=== PATIENT | female | born 1940 | race Caucasian/White ===

== ENCOUNTER → 2016-08-21 | Outpatient (CLI) | payer OTHER, MEDICARE ==
[~2016-08-21] MED LIST: ACET-1256 PO; AGG PO; AMB5 PO; ASCO1CAP3 PO; CALC1CHW32 PO; CALCTAB5 PO; CHOL100010 PO; CLX20 PO; CLX40 PO; CYAN10005 PO; GFNSR600 PO; IBUP-1050 PO; IPRA1AER2 INH; LVQ750 PO; MAGN250T22 PO; METF850T PO; MULT-506 PO; OMEP20CA9 PO; OXYC-57 PO; PRED10TA PO; TRIA1SPR2 NAE; TRIA1SPR4 NAE; ZYR10 PO
== END | disposition home or self-care (01) ==
LOC: C.RDSM 16:27
PROVIDERS: ATTEND Physical Medicine & Rehabilitation Sports Medicine
DX: M75.121 Complete rotator cuff tear or rupture of right shoulder, not specified as traumatic (principal)

== ENCOUNTER 2016-12-10 17:58 | Inpatient (IN) | payer OTHER, MEDICARE ==
[~2016-12-10] VITALS: Ht 167.6 cm; Wt 90.0 kg
[~2016-12-10 17:58] MED LIST changes: -AMB5 PO; -CALC1CHW32 PO; -CLX40 PO; -GFNSR600 PO; -IPRA1AER2 INH; -LVQ750 PO; -PRED10TA PO; -TRIA1SPR4 NAE; -ZYR10 PO
--- NOTE | 2016-12-10 18:26 | EMERGENCY ROOM VISIT NOTE ---
History Report prepared by Huber: Michael Whalen Under the Supervision of: Dr. Cuate Guzman M.D. First contact with patient: 18:15 Chief Complaint: COUGH Stated Complaint: FLU LIKE SX Nursing Triage Summary: pt to the ED with c/o exhaustion and coughing up "all colors" seen at [facility] 2 x this week and is worried about pneumonia History of Present Illness The patient is a 76 year old female who presents to the Emergency Room with complaints of a persistent illness beginning about 6 days ago. She notes having a productive cough that occasionally prevents her from carrying a conversation. She lives alone and has concern for pneumonia. The patient admits to having intermittent fevers about 2.5 degrees above her baseline but none above 101. She denies abdominal pain but is just sore from coughing. She was at the walk- in clinic at [place] 3 days ago and received a breathing treatment, and went back yesterday receiving Ceftin. No x-rays were taken during these visits. The patient has also been taking Mucinex D with no relief of her symptoms. She admits to being on Metformin for low level diabetes. Source of History: patient Onset: about 6 days ago Position: other (global) Quality: other (illness) Timing: other (persistent) Associated Symptoms: + cough, + fevers, No abdominal pain Review of Systems See HPI for pertinent positives & negatives. A total of 10 systems reviewed and were otherwise negative. Past Medical & Surgical Medical Problems: (1) Anxiety (2) Community acquired pneumonia (3) Diabetes (4) GERD (gastroesophageal reflux disease) (5) Osteoporosis (6) Rotator cuff insufficiency of right shoulder Family History FHx: diabetes Social History Smoking Status: Former Smoker Alcohol Use: occasionally Drug Use: none Marital Status: Housing Status: lives alone Occupation Status: employed Current/Historical Medications Scheduled Ascorbic Acid (Vitamin C), 500 MG PO BID Calcium Phosphate-Cholecalcife (Caltrate Gummy Bites), 1 TAB PO DAILY Cholecalciferol (Vitamin D), 1,000 UNITS PO QAM Citalopram (Citalopram Hydrobromide), 40 MG PO QAM Cyanocobalamin (Vitamin B-12), Unknown Dose PO EVERY 3RD DAY Dipyridamole/Aspirin (Aggrenox 25-200 mg), 1 CAP PO BID Magnesium Oxide (Magnesium), 250 MG PO BID Metformin Hcl (Glucophage), 850 MG PO BIDM Multivitamin (Multivitamin), 1 TAB PO QAM Omeprazole (Prilosec), 20 MG PO HS Triamcinolone Acetonide (Nasal (Nasacort Allergy 24Hr), 1 SPRAY KADY QAM Scheduled PRN Acetaminophen (Tylenol), 500 MG PO Q6H PRN for Fever Allergies Coded Allergies: Latex1 -Allergic Contact Dermititis (Verified Allergy, Unknown, contact dermatitis, 12/10/16) pt states unable to determine if rxn was to the latex or silicone component of eyeglass nosepiece Silicone (Verified Allergy, Unknown, contact dermatitis, 12/10/16) pt states unable to determine if rxn was to the latex or silicone component of eyeglass nosepiece Physical Exam Vital Signs Date Time Temp Pulse Resp B/P Pulse Ox O2 Delivery O2 Flow Rate FiO2 12/10/16 20:57 37.6 96 18 120/72 91 Room Air 12/10/16 18:11 37.7 117 20 128/68 90 Room Air Physical Exam GENERAL: Patient is ill appearing and in moderate distress. HEENT: No acute trauma, normocephalic atraumatic, mucous membranes moist, no nasal congestion, no scleral icterus. NECK: No stridor, no adenopathy, no meningismus, trachea is midline. LUNGS: Crackles throughout right lower lobe. Decreased breath sounds in the right lower lobe. Productive cough noted. HEART:Tachycardic rate and regular rhythm. No murmurs, rubs, gallops appreciated. ABDOMEN: Soft, nontender, bowel sounds positive, no masses appreciated, no peritonitis. BACK: No midline tenderness, no CVA tenderness EXTREMITIES: Normal motion all extremities, no cyanosis, no edema. NEUROLOGIC: Alert and oriented, no acute motor or sensory deficits, no focal weakness, cranial nerves grossly intact. SKIN: No rash, no jaundice, no diaphoresis. Medical Decision & Procedures ER Provider Diagnostic Interpretation: Radiology results and stated below per my review and radiologist interpretation: CHEST ONE VIEW PORTABLE FINDINGS: There is a new right lower lobe patchy airspace opacity. The left lung is clear. The heart is normal in size. Retrocardiac density remains unchanged and likely represents a moderate hiatus hernia. No pleural effusions. No pneumothorax. IMPRESSION: A new right lower lobe airspace opacity consistent with a pneumonia. Recommend follow-up to ensure resolution. Electronically signed by: Mu Carbajal M.D. 12/10/2016 6:50 PM Dictated Date/Time: 12/10/2016 6:49 PM Laboratory Results 12/10/16 19:25 Red Blood Count 3.93, Mean Corpuscular Volume 81.4, Mean Corpuscular Hemoglobin 26.0, Mean Corpuscular Hemoglobin Concent 31.9, Mean Platelet Volume 8.7, Neutrophils (%) (Auto) 80.6, Lymphocytes (%) (Auto) 9.2, Monocytes (%) (Auto) 9.4, Eosinophils (%) (Auto) 0.3, Basophils (%) (Auto) 0.2, Neutrophils # (Auto) 7.49, Lymphocytes # (Auto) 0.86, Monocytes # (Auto) 0.87, Eosinophils # (Auto) 0.03, Basophils # (Auto) 0.02 12/10/16 19:25 Test 12/10/16 19:25 12/10/16 19:44 White Blood Count 9.30 K/uL (4.8-10.8) Red Blood Count 3.93 M/uL (4.2-5.4) Hemoglobin 10.2 g/dL (12.0-16.0) Hematocrit 32.0 % (37-47) Mean Corpuscular Volume 81.4 fL (80-100) Mean Corpuscular Hemoglobin 26.0 pg (25-34) Mean Corpuscular Hemoglobin Concent 31.9 g/dl (32-36) Platelet Count 367 K/uL (130-400) Mean Platelet Volume 8.7 fL (7.4-10.4) Neutrophils (%) (Auto) 80.6 % Lymphocytes (%) (Auto) 9.2 % Monocytes (%) (Auto) 9.4 % Eosinophils (%) (Auto) 0.3 % Basophils (%) (Auto) 0.2 % Neutrophils # (Auto) 7.49 K/uL (1.4-6.5) Lymphocytes # (Auto) 0.86 K/uL (1.2-3.4) Monocytes # (Auto) 0.87 K/uL (0.11-0.59) Eosinophils # (Auto) 0.03 K/uL (0-0.5) Basophils # (Auto) 0.02 K/uL (0-0.2) RDW Standard Deviation 46.0 fL (36.4-46.3) RDW Coefficient of Variation 15.5 % (11.5-14.5) Immature Granulocyte % (Auto) 0.3 % Immature Granulocyte # (Auto) 0.03 K/uL (0.00-0.02) Anion Gap 10.0 mmol/L (3-11) Est Creatinine Clear Calc Drug Dose 77.4 ml/min Estimated GFR () 95.6 Estimated GFR (Non- 82.5 BUN/Creatinine Ratio 12.2 (10-20) Calcium Level 8.6 mg/dl (8.5-10.1) Troponin I 0.039 ng/ml (0-0.045) Bedside Lactic Acid Venous 0.83 mmol/L (0.90-1.70) Laboratory results as reviewed by me. Medications Administered Medications (Trade) Dose Ordered Sig/Kulwinder Route Start Time Stop Time Status Last Admin Dose Admin Sodium Chloride (Nss 1000ml) 1,000 ml @ 999 mls/hr Q1H1M STAT IV 12/10/16 18:38 12/10/16 19:38 DC 12/10/16 19:53 999 MLS/HR Acetaminophen (Tylenol Tab) 1,000 mg NOW STAT PO 12/10/16 18:38 12/10/16 18:39 DC 12/10/16 19:55 1,000 MG Levofloxacin (Levaquin / D5W) 750 mg NOW STAT IV 12/10/16 18:38 12/10/16 18:39 DC 12/10/16 19:53 750 MG ECG Indication: other (cough) Rate (beats per minute): 102 Rhythm: sinus tachycardia Findings: no acute ischemic change, no ectopy ED Course 1818: The patient was evaluated in room B10. A complete history and physical exam was performed. 1837: Ordered Levofloxacin 750 mg IV, Acetaminophen 1,000 mg PO, and NSS 1,000 ml @ 999 mls/hr IV. 1929: Discussed the patient's case with Dr. Ramirez. The patient will be evaluated for further treatment and disposition. 1934: I updated the patient, and she agrees to coming into the hospital. Medical Decision Differential: Infectious, Reactive Airway Disease, Pneumonia, Pneumothorax, COPD , CHF, ACS, Pulmonary Embolism, MSK, GI, Dissection, amongst other etiologies entertained. 76 yr old female arrives with complaint of shortness of breath, elevated temp, productive cough and weakness. Mildly ill appearing with pneumonia by examination. Tachycardic and with symptoms/findings i feel she will need to come in for treatment. CXR consistent with pneumonia, and given dehydration suspect she will have worsening of this. IV Levaquin ordered along with blood cultures. Not hypotensive nor lactic acidosis thus not septic shock at this time and will hold on full 30ml/kg bolus initially. Consults Time Called: 1924 Consulting Physician: Dr. Ramirez, [facility] [place] Return[place] Call: 1929 Discussed the patient's case with Dr. Ramirez. The patient will be evaluated for further treatment and disposition. Impression Primary Impression: Right lower lobe pneumonia Additional Impression: Sepsis Scribe Attestation The scribe's documentation has been prepared under my direction and personally reviewed by me in its entirety. I confirm that the note above accurately reflects all work, treatment, procedures, and medical decision making performed by me. Departure Information Dispostion Being Evaluated By Hospitalist Referrals Chavo Jung M.D. (PCP) Patient Instructions My [facility] Problem Qualifiers Primary Impression: Right lower lobe pneumonia Pneumonia type: due to unspecified organism Qualified Codes: J18.1 - Lobar pneumonia, unspecified organism Additional Impression: Sepsis Sepsis type: sepsis due to unspecified organism Qualified Codes: A41.9 - Sepsis, unspecified organism
[2016-12-10] MEDS ORDERED: LEVAQUIN 750MG / 150ML D5W IV STA (18:38)
[2016-12-10] MEDS ORDERED: SODIUM CHLORIDE 0.9% 1000ML 1,000 ML IV STA (18:38)
[2016-12-10] MEDS ORDERED: ACETAMINOPHEN 500 MG TAB PO STA (18:38)
--- NOTE | 2016-12-10 18:52 | DIAGNOSTIC IMAGING REPORT ---
CHEST ONE VIEW PORTABLE HISTORY: Cough COMPARISON: Chest 05/01/2016. FINDINGS: There is a new right lower lobe patchy airspace opacity. The left lung is clear. The heart is normal in size. Retrocardiac density remains unchanged and likely represents a moderate hiatus hernia. No pleural effusions. No pneumothorax. IMPRESSION: A new right lower lobe airspace opacity consistent with a pneumonia. Recommend follow-up to ensure resolution. Electronically signed by: Mu Carbajal M.D. 12/10/2016 6:50 PM Dictated Date/Time: 12/10/2016 6:49 PM
[2016-12-10] MEDS ORDERED: CLX40 PO (19:07)
[2016-12-10] MEDS ORDERED: CALC1CHW32 PO (19:07)
[2016-12-10] MEDS ORDERED: AGG PO (19:07)
[2016-12-10] MEDS ORDERED: CHOL100010 PO (19:07)
[2016-12-10] MEDS ORDERED: TRIA1SPR4 NAE (19:07)
[2016-12-10 19:51] LABS: BASO % 0.2 %; BASO ABS # 0.02 K/uL (0-0.2); COMPLETE YES; EOS % 0.3 %; IG% 0.3 %; LYMPH % 9.2 %; LYMPH ABS # 0.86 K/uL (1.2-3.4); MEAN CELL VOLUME 81.4 fL (80-100); MEAN CORPUSCULAR HGB CONC 31.9 g/dl (32-36); MEAN PLATELET VOLUME 8.7 fL (7.4-10.4); MONO % 9.4 %; NEUT % 80.6 %; PLATELET COUNT 367 K/uL (130-400); RED BLOOD COUNT 3.93 M/uL (4.2-5.4)
[2016-12-10 20:08] LABS: BUN/CREATININE RATIO 12.2 (10-20); CALCIUM 8.6 mg/dl (8.5-10.1); CREATININE 0.72 mg/dl (0.60-1.20); POTASSIUM 4.1 mmol/L (3.5-5.1)
[2016-12-10] MEDS ORDERED: POLYETHYLENE (MIRALAX) 17 GM PACK PO PRN (21:00)
[2016-12-10] MEDS ORDERED: ONDANSETRON INJ 2 MG/ML 2 ML VIAL IV PRN (21:00)
[2016-12-10] MEDS ORDERED: ALUMINUM/MAGNESIUM/SIMETH (MAALOX MAX) 30 ML UDC PO PRN (21:00)
[2016-12-10] MEDS ORDERED: MAGNESIUM HYDROXIDE SUSP 30 ML UDC PO PRN (21:00)
--- NOTE | 2016-12-10 21:43 | History and Physical ---
History & Physical Date & Time of Service: Dec 10, 2016 at 21:40 Chief Complaint: Flu Like Sx Primary Care Physician: Chavo Jung M.D. History of Present Illness Source: patient This is a pleasant 76 year old female who presents complaining of malaise for the past 6 days. She notes recent recently returning back from [place] from a trip and having the onset of upper respiratory symptoms 6 days ago. Her symptoms were predominantly nasal congestion and green/opaque discharge. Around that time she states she is also starting to feel more short of breath. Her shortness of breath was both at rest and with exertion, and she notes noting it being particularly worse when she is climbing stairs. She also started having a productive cough, bringing up green, cloudy, creamy-appearing sputum. She denies any wheezing. She does note for the past couple days having increasing chest discomfort and abdominal discomfort associated with coughing. She states that she's been extremely fatigued, and has absolutely no energy. Her appetite has been poor. She also states feeling slightly unsteady on her feet. She denies vertigo. She denies any ear pain, hearing loss, ear pain. She does report mild maxillary sinus pressure bilaterally. She denies sore throat. She measured her temperature at 99 at its peak, couple days ago. She denies any sick contacts. Past Medical/Surgical History Medical Problems: (1) Anxiety Status: Chronic (2) Diabetes Status: Chronic (3) GERD (gastroesophageal reflux disease) Status: Chronic (4) Osteoporosis Status: Chronic Family History FHx: diabetes Mother had type 2 diabetes Social History Smoking Status: Former Smoker Smokeless Tobacco Use: No Alcohol Use: none Drug Use: none Marital Status: Housing status: lives alone Occupational Status: employed Multi-Drug Resistant Organisms History of MDRO: No Allergies Coded Allergies: Latex1 -Allergic Contact Dermititis (Verified Allergy, Unknown, contact dermatitis, 12/10/16) pt states unable to determine if rxn was to the latex or silicone component of eyeglass nosepiece Silicone (Verified Allergy, Unknown, contact dermatitis, 12/10/16) pt states unable to determine if rxn was to the latex or silicone component of eyeglass nosepiece Home Medications Scheduled Ascorbic Acid (Vitamin C), 500 MG PO BID Calcium Phosphate-Cholecalcife (Caltrate Gummy Bites), 1 TAB PO DAILY Cholecalciferol (Vitamin D), 1,000 UNITS PO QAM Citalopram (Citalopram Hydrobromide), 40 MG PO QAM Cyanocobalamin (Vitamin B-12), Unknown Dose PO EVERY 3RD DAY Dipyridamole/Aspirin (Aggrenox 25-200 mg), 1 CAP PO BID Magnesium Oxide (Magnesium), 250 MG PO BID Metformin Hcl (Glucophage), 850 MG PO BIDM Multivitamin (Multivitamin), 1 TAB PO QAM Omeprazole (Prilosec), 20 MG PO HS Triamcinolone Acetonide (Nasal (Nasacort Allergy 24Hr), 1 SPRAY KADY QAM Scheduled PRN Acetaminophen (Tylenol), 500 MG PO Q6H PRN for Fever Review of Systems 10-point review of systems was otherwise negative unless stated above in the history of present illness. Physical Exam Vital Signs Date Time Temp Pulse Resp B/P Pulse Ox O2 Delivery O2 Flow Rate FiO2 12/10/16 20:57 37.6 96 18 120/72 91 Room Air 12/10/16 18:11 37.7 117 20 128/68 90 Room Air General Appearance: WD/WN, no apparent distress Head: normocephalic, atraumatic Eyes: normal inspection, EOMI ENT: hearing grossly normal, pharynx normal Neck: supple, no adenopathy, no JVD Respiratory/Chest: + decreased breath sounds (right base, ), + pertinent finding (coarse breath sounds bilaterally, no wheezing) Cardiovascular: regular rate, rhythm, no gallop, no murmur Abdomen/GI: normal bowel sounds, non tender, soft Back: normal inspection, no CVA tenderness, no muscle spasm Extremities/Musculoskelatal: no calf tenderness, no pedal edema Neurologic/Psych: alert, normal mood/affect, oriented x 3 Skin: normal color, warm/dry, no rash Lymphatic: no adenopathy Diagnostics Laboratory Results Results Past 24 Hours Test 12/10/16 19:25 12/10/16 19:44 Range/Units White Blood Count 9.30 4.8-10.8 K/uL Red Blood Count 3.93 4.2-5.4 M/uL Hemoglobin 10.2 12.0-16.0 g/dL Hematocrit 32.0 37-47 % Mean Corpuscular Volume 81.4 80-100 fL Mean Corpuscular Hemoglobin 26.0 25-34 pg Mean Corpuscular Hemoglobin Concent 31.9 32-36 g/dl Platelet Count 367 130-400 K/uL Mean Platelet Volume 8.7 7.4-10.4 fL Neutrophils (%) (Auto) 80.6 % Lymphocytes (%) (Auto) 9.2 % Monocytes (%) (Auto) 9.4 % Eosinophils (%) (Auto) 0.3 % Basophils (%) (Auto) 0.2 % Neutrophils # (Auto) 7.49 1.4-6.5 K/uL Lymphocytes # (Auto) 0.86 1.2-3.4 K/uL Monocytes # (Auto) 0.87 0.11-0.59 K/uL Eosinophils # (Auto) 0.03 0-0.5 K/uL Basophils # (Auto) 0.02 0-0.2 K/uL RDW Standard Deviation 46.0 36.4-46.3 fL RDW Coefficient of Variation 15.5 11.5-14.5 % Immature Granulocyte % (Auto) 0.3 % Immature Granulocyte # (Auto) 0.03 0.00-0.02 K/uL Sodium Level 135 136-145 mmol/L Potassium Level 4.1 3.5-5.1 mmol/L Chloride Level 101 98-107 mmol/L Carbon Dioxide Level 24 21-32 mmol/L Anion Gap 10.0 3-11 mmol/L Blood Urea Nitrogen 9 7-18 mg/dl Creatinine 0.72 0.60-1.20 mg/dl Est Creatinine Clear Calc Drug Dose 77.4 ml/min Estimated GFR () 95.6 Estimated GFR (Non- 82.5 BUN/Creatinine Ratio 12.2 10-20 Random Glucose 137 70-99 mg/dl Calcium Level 8.6 8.5-10.1 mg/dl Troponin I 0.039 0-0.045 ng/ml Bedside Lactic Acid Venous 0.83 0.90-1.70 mmol/L Microbiology Results 12/10/16 Blood Culture, Received Pending 12/10/16 Blood Culture, Received Pending Diagnostic Radiology CHEST ONE VIEW PORTABLE HISTORY: Cough COMPARISON: Chest 05/01/2016. FINDINGS: There is a new right lower lobe patchy airspace opacity. The left lung is clear. The heart is normal in size. Retrocardiac density remains unchanged and likely represents a moderate hiatus hernia. No pleural effusions. No pneumothorax. IMPRESSION: A new right lower lobe airspace opacity consistent with a pneumonia. Recommend follow-up to ensure resolution. Electronically signed by: Mu Carbajal M.D. 12/10/2016 6:50 PM Dictated Date/Time: 12/10/2016 6:49 PM Impression Assessment and Plan Pleasant 76-year-old female with community-acquired pneumonia at the right lung base. Patient requires admission at this time for IV antibiotic treatment. Our plan for her is as follows: Community Acquired PNA - Levaquin given in the emergency department We'll continue with IV azithromycin and Rocephin - DuoNeb every 4 hours and when necessary with wheezing - Solu-Medrol 20 mg 3 times a day - Incentive spirometer - Patient will need repeat chest x-ray in 4-6 weeks time Type 2 Diabetes Mellitus - Hold metformin - Start insulin sliding scale; before meals and at bedtime Accu-Cheks - Last hemoglobin A1c was done in August 2016; will repeat in-house History of CVA - Continue Aggrenox Chronic Right shoulder pain - Continue Tylenol GERD - Continue Protonix DVT prophylaxis - Lovenox 40 mg daily - SCD knee Disposition - MedSurg - PT and OT orders and placed At this time, and held all vitamin supplementation and nutraceuticals. These can be restarted per the day team discretion, though I do not think these are essential medications at this time CODE STATUS - Level I full code Resuscitation Status FULL RESUSCITATION VTE Prophylaxis VTE Risk Assessment Done? Y/N: Yes Risk Level: Moderate Given or contraindicated: Enoxaparin (Lovenox)SQ, SCD's Assessment and Plan Attending Addendum: I have physically seen and examined this patient, have directed their medical care, have supervised the medical residents activities, and agree with the H&P as noted above, with the following changes: NONE
[2016-12-10] MEDS: INSULIN ASPART 100 UNITS/ML 3 ML PEN SC SCH (22:35)
[2016-12-10 22:49] VITALS: BP 120/72; PULSE 96; TEMP 37.6; O2SAT 91; BMI 32.0
[2016-12-10 23:25] VITALS: BP 130/75; PULSE 93; TEMP 36.6; BMI 32.0
[2016-12-11] VITALS (10 sets, daily range): BP systolic 122–146; BP diastolic 75–77; PULSE 73–101; TEMP 36.4–36.8; O2SAT 93–95
[2016-12-11] MEDS ORDERED: CEFTRIAXONE SOD INJ 1 GM in DEXTROSE 5% ADD-VANTAGE 50ML 50 ML IV SCH ×2
[2016-12-11] MEDS: METHYLPREDNISOLONE IV 20 MG in SYRINGE 0 ML IV SCH ×4 (00:08→23:38)
[2016-12-11] MEDS ORDERED: AZITHROMYCIN IV 500 MG in DEXTROSE 5% 250ML 250 ML IV SCH (06:00)
[2016-12-11 06:04] LABS: BASO % 0.4 %; BASO ABS # 0.03 K/uL (0-0.2); COMPLETE YES; HEMATOCRIT 33.4 % (37-47); IG% 0.4 %; LYMPH % 8.5 %; MEAN CELL VOLUME 81.7 fL (80-100); MEAN CORPUSCULAR HEMOGLOBIN 25.4 pg (25-34); MEAN CORPUSCULAR HGB CONC 31.1 g/dl (32-36); MEAN PLATELET VOLUME 8.5 fL (7.4-10.4); MONO % 3.3 %; NEUT % 87.4 %; PLATELET COUNT 361 K/uL (130-400); RED BLOOD COUNT 4.09 M/uL (4.2-5.4); WHITE BLOOD COUNT 8.21 K/uL (4.8-10.8)
[2016-12-11 06:46] LABS: BUN/CREATININE RATIO 13.2 (10-20); CALCIUM 8.7 mg/dl (8.5-10.1); CREATININE 0.62 mg/dl (0.60-1.20); POTASSIUM 4.2 mmol/L (3.5-5.1)
[2016-12-11] MEDS: ALBUT/IPRATROP 3MG/0.5MG NEB 3 ML VIAL INH SCH ×4 (07:29→18:58)
[2016-12-11] MEDS: CITALOPRAM 40 MG TAB PO SCH (08:08)
[2016-12-11] MEDS: ENOXAPARIN 40 MG/0.4 ML SYR SQ SCH ×2 (08:08→08:35)
[2016-12-11] MEDS: DIPYRIDAMOLE/ASPIRIN CAP PO SCH ×2 (08:09→20:30)
[2016-12-11] MEDS: INSULIN ASPART 100 UNITS/ML 3 ML PEN SC SCH ×4 (08:35→20:42)
[2016-12-11] MEDS ORDERED: LEVOFLOXACIN / D5W 750 MG in PREMIXED IN D5W 150 ML IV SCH (09:00)
[2016-12-11 10:14] LABS: ESTIMATED AVERAGE GLUCOSE 148 mg/dl; HA1C FLAG Normal (Normal)
--- NOTE | 2016-12-11 10:52 | Hospitalist Progress Note ---
Hospitalist Progress Note Date of Service Dec 11, 2016. Subjective Pt evaluation today including: conversation w/ patient, physical exam, chart review, lab review, review of studies, conversation w/ client consultant Voiding: no voiding problems, no incontinence Patient states she is feeling much improved since admission. +productive cough Weakness/fatigue has resolved She is eating/drinking OK. Per patient, had started to swelling and become itchy after starting IV Azithromycin- she was given IV Levaquin and Rocephin in ED w/ no reported issues - resume Levaquin Patient denies any fever, chills, sweats, lightheadedness, dizziness, vision changes, CP, palpitations, edema, SOB, wheezing, abdominal pain, nausea, vomiting, diarrhea, urinary symptoms, melena, numbness/tingling, weakness, muscle/joint pain, anxiety/depression, active bleeding, or new skin discoloration/changes. Medications Current Inpatient Medications Medications (Trade) Dose Ordered Sig/Kulwinder Route Start Time Stop Time Status Last Admin Dose Admin Enoxaparin Sodium (Lovenox Inj) 40 mg Q24H SQ 12/11/16 08:00 01/10/17 07:59 12/11/16 08:35 40 MG Acetaminophen (Tylenol Tab) 650 mg Q4H PRN PO 12/10/16 21:00 01/09/17 20:59 Al Hydrox/Mg Hydrox/Simethicone (Maalox Max Susp) 15 ml Q4H PRN PO 12/10/16 21:00 01/09/17 20:59 Magnesium Hydroxide (Milk Of Magnesia Susp) 30 ml Q6H PRN PO 12/10/16 21:00 01/09/17 20:59 Polyethylene (Miralax Powder Packet) 17 gm DAILY PRN PO 12/10/16 21:00 01/09/17 20:59 Ondansetron HCl (Zofran Inj) 4 mg Q6H PRN IV 12/10/16 21:00 01/09/17 20:59 Insulin Aspart (novoLOG ASPART) SLIDING SCALE G... ACHS SC 12/10/16 21:00 01/09/17 20:59 12/11/16 08:35 1 UNITS Citalopram Hydrobromide (celeXA TAB) 40 mg QAM PO 12/11/16 08:00 01/10/17 08:59 12/11/16 08:08 40 MG Dipyridamole/ Aspirin (Aggrenox 200MG/ 25MG Cap) 1 cap BID PO 12/10/16 21:00 01/09/17 20:59 12/11/16 08:09 1 CAP Pantoprazole Sodium 40 mg 40 mg HS PO 12/11/16 21:00 01/10/17 20:59 Ceftriaxone Sodium/Dextrose (Rocephin Inj/ Dextrose Add-Alicia 50ML) 50 ml @ 100 mls/hr Q24H IV 12/11/16 00:00 12/18/16 00:00 12/11/16 00:08 100 MLS/HR Albuterol/ Ipratropium 3 ml 3 ml QIDR INH 12/11/16 08:00 01/10/17 07:59 12/11/16 07:29 3 ML Methylprednisolone Sodium Succinate/ Syringe (Solu-Medrol IV/ Syringe) 0.32 ml @ 1.5 mls/min Q8H IV 12/11/16 00:00 01/10/17 00:00 12/11/16 08:08 1.5 MLS/MIN Objective Vital Signs Date Time Temp Pulse Resp B/P Pulse Ox O2 Delivery O2 Flow Rate FiO2 12/11/16 07:29 88 16 95 Room Air 12/11/16 07:20 36.4 83 20 123/75 94 12/10/16 23:25 36.6 93 18 130/75 12/10/16 23:04 107 22 114/64 91 12/10/16 22:49 37.6 96 18 120/72 91 Room Air 12/10/16 20:57 37.6 96 18 120/72 91 Room Air 12/10/16 18:11 37.7 117 20 128/68 90 Room Air Physical Exam General Appearance: no apparent distress Eyes: normal inspection, PERRL ENT: hearing grossly normal Neck: supple Respiratory/Chest: no respiratory distress, no accessory muscle use, + decreased breath sounds (right lung base), + crackles (right lung base ), + pertinent finding (coarse BS throughout all lung granados ) Cardiovascular: regular rate, rhythm Abdomen: normal bowel sounds, non tender, soft Extremities: no pedal edema, no calf tenderness Neurologic/Psychiatric: alert, normal mood/affect, oriented x 3 Skin: normal color, warm/dry, no rash Laboratory Results Last 24 Hours Test 12/10/16 19:25 12/10/16 19:44 12/11/16 05:40 12/11/16 07:44 White Blood Count 9.30 K/uL 8.21 K/uL Red Blood Count 3.93 M/uL 4.09 M/uL Hemoglobin 10.2 g/dL 10.4 g/dL Hematocrit 32.0 % 33.4 % Mean Corpuscular Volume 81.4 fL 81.7 fL Mean Corpuscular Hemoglobin 26.0 pg 25.4 pg Mean Corpuscular Hemoglobin Concent 31.9 g/dl 31.1 g/dl Platelet Count 367 K/uL 361 K/uL Mean Platelet Volume 8.7 fL 8.5 fL Neutrophils (%) (Auto) 80.6 % 87.4 % Lymphocytes (%) (Auto) 9.2 % 8.5 % Monocytes (%) (Auto) 9.4 % 3.3 % Eosinophils (%) (Auto) 0.3 % 0.0 % Basophils (%) (Auto) 0.2 % 0.4 % Neutrophils # (Auto) 7.49 K/uL 7.18 K/uL Lymphocytes # (Auto) 0.86 K/uL 0.70 K/uL Monocytes # (Auto) 0.87 K/uL 0.27 K/uL Eosinophils # (Auto) 0.03 K/uL 0.00 K/uL Basophils # (Auto) 0.02 K/uL 0.03 K/uL RDW Standard Deviation 46.0 fL 46.2 fL RDW Coefficient of Variation 15.5 % 15.5 % Immature Granulocyte % (Auto) 0.3 % 0.4 % Immature Granulocyte # (Auto) 0.03 K/uL 0.03 K/uL Sodium Level 135 mmol/L 136 mmol/L Potassium Level 4.1 mmol/L 4.2 mmol/L Chloride Level 101 mmol/L 104 mmol/L Carbon Dioxide Level 24 mmol/L 24 mmol/L Anion Gap 10.0 mmol/L 8.0 mmol/L Blood Urea Nitrogen 9 mg/dl 8 mg/dl Creatinine 0.72 mg/dl 0.62 mg/dl Est Creatinine Clear Calc Drug Dose 77.4 ml/min 89.9 ml/min Estimated GFR () 95.6 103.0 Estimated GFR (Non- 82.5 88.8 BUN/Creatinine Ratio 12.2 13.2 Random Glucose 137 mg/dl 209 mg/dl Calcium Level 8.6 mg/dl 8.7 mg/dl Troponin I 0.039 ng/ml Bedside Lactic Acid Venous 0.83 mmol/L Prothrombin Time 11.0 SECONDS Prothromb Time International Ratio 1.0 Estimated Average Glucose 148 mg/dl Hemoglobin A1c 6.8 % Bedside Glucose 188 mg/dl Assessment and Plan Pleasant 76-year-old female with community-acquired pneumonia at the right lung base. Patient requires admission at this time for IV antibiotic treatment. Community Acquired PNA- IMPROVING, w/ tachycardia and fever- RESOLVED: - IV Levaquin x1 dose in ED; admitted w/ IV Azithromycin + Rocephin -- Patient states she started to experiences had swelling and itching w/ Azithromycin- will d/c and restart IV Levaquin - Mucinex - DuoNeb QID and q2 hrs - IV Solu-Medrol 20 mg TID, will wean as tolerated - BCx pending - Incentive spirometer - CXR- consistent w/ right lower lobe pneumonia- recommend repeat CXR T2DM: - Hold Metformin- resume at discharge - BSG ACHS w/ sliding insulin scale - ha1c 12/11/16- 6.8% h/o CVA: Continue Aggrenox Chronic Right shoulder pain: Continue Tylenol Anxiety: Continue Celexa 40 mg daily GERD: Continue Protonix- resume Prilosec at discharge GI Prophylaxis: Maalox PRN, IV Zofran PRN, Colace and/or Milk of Mag PRN DVT prophylaxis: Lovenox 40 mg daily Code Status: LEVEL I, FULL Disposition: From home, lives alone. PT/OT evaluations pending
[2016-12-11] MEDS ORDERED: GLUCOSE 40% GEL 15 GM TUBE PO PRN (13:15)
[2016-12-11] MEDS ORDERED: GLUCOSE 10 TABS/TUBE PO PRN (13:15)
[2016-12-11] MEDS ORDERED: GLUCAGON FOR INJ 1 MG VIAL SQ PRN (13:15)
[2016-12-11] MEDS ORDERED: DEXTROSE 50% 50 ML SYR IV PRN (13:15)
[2016-12-11] MEDS: LEVOFLOXACIN / D5W 750 MG in PREMIXED IN D5W 150 ML IV SCH (20:29)
[2016-12-11] MEDS: PANTOprazole SOD 40 MG TAB PO SCH (20:29)
[2016-12-11] MEDS: GUAIFENESIN 600 MG TABCR PO SCH (20:30)
[2016-12-12] VITALS (7 sets, daily range): BP systolic 148–159; BP diastolic 87–91; PULSE 88–97; TEMP 36.8–37; O2SAT 90–96
[2016-12-12 06:25] LABS: BASO % 0.1 %; BASO ABS # 0.01 K/uL (0-0.2); COMPLETE YES; HEMATOCRIT 32.7 % (37-47); IG% 0.4 %; LYMPH ABS # 1.01 K/uL (1.2-3.4); MEAN CELL VOLUME 81.1 fL (80-100); MEAN CORPUSCULAR HEMOGLOBIN 25.3 pg (25-34); MEAN CORPUSCULAR HGB CONC 31.2 g/dl (32-36); MONO % 5.4 %; NEUT % 85.1 %; PLATELET COUNT 408 K/uL (130-400); RED BLOOD COUNT 4.03 M/uL (4.2-5.4)
[2016-12-12 07:04] LABS: BUN/CREATININE RATIO 15.8 (10-20); CALCIUM 9.1 mg/dl (8.5-10.1); CREATININE 0.61 mg/dl (0.60-1.20); POTASSIUM 4.4 mmol/L (3.5-5.1)
[2016-12-12] MEDS: ALBUT/IPRATROP 3MG/0.5MG NEB 3 ML VIAL INH SCH ×4 (07:33→20:47)
[2016-12-12] MEDS: INSULIN ASPART 100 UNITS/ML 3 ML PEN SC SCH ×4 (09:12→21:23)
[2016-12-12] MEDS: DIPYRIDAMOLE/ASPIRIN CAP PO SCH ×2 (09:13→21:12)
[2016-12-12] MEDS: METHYLPREDNISOLONE IV 20 MG in SYRINGE 0 ML IV SCH (09:14)
[2016-12-12] MEDS: CITALOPRAM 40 MG TAB PO SCH (09:14)
[2016-12-12] MEDS: GUAIFENESIN 600 MG TABCR PO SCH ×2 (09:14→21:12)
[2016-12-12] MEDS: ENOXAPARIN 40 MG/0.4 ML SYR SQ SCH (09:15)
[2016-12-12] MEDS: ACETAMINOPHEN 325 MG TAB PO PRN (09:17)
--- NOTE | 2016-12-12 10:22 | Progress Note ---
Subjective Date of Service: Dec 12, 2016. Subjective Pt evaluation today including: conversation w/ patient, physical exam, chart review, lab review, review of studies, review of inpatient medication list still cough, and spasmatic cough when deep breathing, not sleep well Problem List Medical Problems: (1) Anterior dislocation of right shoulder Status: Acute (2) Right lower lobe pneumonia Status: Acute (3) Right shoulder pain Status: Acute (4) Sepsis Status: Acute Review of Systems Constitutional: No chills, No fatigue, No fever, No problem reported, No sweats , No weakness, No weight loss Eyes: No diplopia, No discharge, No eye pain, No redness, No worsening of vision ENT: No dental problems, No hearing loss, No nasal symptoms, No sore throat, No tinnitus, No trouble swallowing, No unusual epistaxis Respiratory: + cough, No dyspnea at rest, No dyspnea on exertion, No hemoptysis , No shortness of breath, No sputum, No wheezing Cardiac: No PND, No chest pain, No claudication, No edema, No orthopnea, No palpitations Abdomen: No constipation, No diarrhea, No nausea, No pain, No vomiting Musculoskeletal: No calf pain, No joint pain, No muscle pain, No swelling Female : No abnormal vaginal bleeding, No dysuria, No hematuria, No incontinence, No urinary frequency, No vaginal discharge Neurologic: No balance problems, No memory loss, No numbness/tingling, No paralysis, No vertigo, No weakness Psychiatric: No anhedonism, No anxiety, No depression symptoms, No insomnia, No substance abuse Heme: No abnormal bleeding/bruising, No clotting problems, No night sweats, No swollen lymph nodes Endo: No excessive thirst, No excessive urination, No fatigue Skin: No bleeding, No color change, No itch, No new/changing skin lesions, No rash Objective Vital Signs Date Time Temp Pulse Resp B/P Pulse Ox O2 Delivery O2 Flow Rate FiO2 12/12/16 07:33 90 14 93 Room Air 12/12/16 07:22 37.0 97 20 159/91 96 Room Air 12/12/16 00:10 Room Air 12/11/16 22:56 36.8 101 18 146/77 93 Room Air 12/11/16 18:58 87 14 93 Room Air 12/11/16 16:28 94 Room Air 12/11/16 15:27 36.4 83 20 123/75 94 Room Air 12/11/16 14:57 73 12 94 Room Air 12/11/16 12:33 90 93 12/11/16 11:37 88 12 95 Room Air Physical Exam General Appearance: WD/WN, no apparent distress, + obese Eyes: normal inspection, PERRL, EOMI, sclerae normal ENT: normal ENT inspection, hearing grossly normal, pharynx normal Neck: supple, no adenopathy, thyroid normal, no JVD, no carotid bruits, trachea midline Respiratory/Chest: chest non-tender, normal breath sounds, no respiratory distress, no accessory muscle use, + decreased breath sounds, + wheezing (mild) Cardiovascular: regular rate, rhythm, no edema, no gallop, no JVD, no murmur Abdomen: normal bowel sounds, non tender, soft, no organomegaly, no pulsatile mass Extremities: normal range of motion, non-tender, normal inspection, no pedal edema, no calf tenderness, normal capillary refill, pelvis stable 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, no motor/sensory deficits, alert, normal mood/affect, oriented x 3 Skin: normal color, warm/dry, no rash Lymphatic: no adenopathy Laboratory Results Last 24 Hours Test 12/11/16 11:40 12/11/16 15:29 12/11/16 20:17 12/12/16 05:41 Bedside Glucose 254 mg/dl 205 mg/dl 242 mg/dl White Blood Count 11.20 K/uL Red Blood Count 4.03 M/uL Hemoglobin 10.2 g/dL Hematocrit 32.7 % Mean Corpuscular Volume 81.1 fL Mean Corpuscular Hemoglobin 25.3 pg Mean Corpuscular Hemoglobin Concent 31.2 g/dl Platelet Count 408 K/uL Mean Platelet Volume 9.0 fL Neutrophils (%) (Auto) 85.1 % Lymphocytes (%) (Auto) 9.0 % Monocytes (%) (Auto) 5.4 % Eosinophils (%) (Auto) 0.0 % Basophils (%) (Auto) 0.1 % Neutrophils # (Auto) 9.54 K/uL Lymphocytes # (Auto) 1.01 K/uL Monocytes # (Auto) 0.60 K/uL Eosinophils # (Auto) 0.00 K/uL Basophils # (Auto) 0.01 K/uL RDW Standard Deviation 46.0 fL RDW Coefficient of Variation 15.5 % Immature Granulocyte % (Auto) 0.4 % Immature Granulocyte # (Auto) 0.04 K/uL Sodium Level 136 mmol/L Potassium Level 4.4 mmol/L Chloride Level 103 mmol/L Carbon Dioxide Level 26 mmol/L Anion Gap 7.0 mmol/L Blood Urea Nitrogen 10 mg/dl Creatinine 0.61 mg/dl Est Creatinine Clear Calc Drug Dose 91.4 ml/min Estimated GFR () 103.5 Estimated GFR (Non- 89.3 BUN/Creatinine Ratio 15.8 Random Glucose 197 mg/dl Calcium Level 9.1 mg/dl Test 12/12/16 07:21 Bedside Glucose 179 mg/dl Assessment and Plan 76-year-old female admitted on 12/10/2016 with community-acquired pneumonia at the right lung base. Patient requires admission at this time for IV antibiotic treatment. Community Acquired PNA: stable and IMPROVING, w/ tachycardia and fever upon admission- RESOLVED: IV Levaquin x1 dose in ED; admitted w/ IV Azithromycin + Rocephin feel Levaquin is goog enough, Continue on IV Levaquin cont Mucinex cont DuoNeb QID and q2 hrs increased IV Solu-Medrol to 60 mg TID b/c still spasmatic cough - BCx pending - Incentive spirometer - CXR- consistent w/ right lower lobe pneumonia - will repeat CXR T2DM: - Hold Metformin- resume at discharge - BSG ACHS w/ sliding insulin scale - ha1c 12/11/16- 6.8% h/o CVA: Continue Aggrenox Chronic Right shoulder pain: stable Continue Tylenol Anxiety: Continue Celexa 40 mg daily GERD: Continue Protonix- resume Prilosec at discharge GI Prophylaxis: Maalox PRN, IV Zofran PRN, Colace and/or Milk of Mag PRN DVT prophylaxis: Lovenox 40 mg daily Code Status: LEVEL I, FULL Disposition: From home, lives alone. PT/OT evaluations pending december DC day 1-2, encourage up and walk Continued [facility] stay due to: multiple IV medications needed Discharge planning: uncertain
--- NOTE | 2016-12-12 11:36 | DIAGNOSTIC IMAGING REPORT ---
CHEST 2 VIEWS ROUTINE CLINICAL HISTORY: Pneumonia COMPARISON STUDY: 12/10/2016 FINDINGS: The cardiac and mediastinal contours remain stable. There is an air-containing retrocardiac opacity consistent with a hiatal hernia. There are persistent right lower lobe airspace opacities consistent with a pneumonia.[ IMPRESSION: 1. Persistent right lower lobe airspace opacities consistent with a pneumonia 2. Hiatal hernia Electronically signed by: Brandt Smart M.D. 12/12/2016 11:34 AM Dictated Date/Time: 12/12/2016 11:33 AM
[2016-12-12] MEDS: METHYLPREDNISOLONE IV 60 MG in SYRINGE 0 ML IV SCH ×2 (13:02→21:12)
[2016-12-12] MEDS: LEVOFLOXACIN / D5W 750 MG in PREMIXED IN D5W 150 ML IV SCH (21:11)
[2016-12-12] MEDS: PANTOprazole SOD 40 MG TAB PO SCH (21:11)
[2016-12-13] VITALS (8 sets, daily range): BP systolic 110–150; BP diastolic 68–87; PULSE 80–103; TEMP 36.5–37.2; O2SAT 90–95
[2016-12-13] MEDS: ZOLPIDEM TARTRATE 5 MG TAB PO PRN (00:23)
[2016-12-13] MEDS: METHYLPREDNISOLONE IV 60 MG in SYRINGE 0 ML IV SCH (06:16)
[2016-12-13] MEDS: ALBUT/IPRATROP 3MG/0.5MG NEB 3 ML VIAL INH SCH ×5 (07:10→19:14)
[2016-12-13 07:35] LABS: BASO % 0.1 %; BASO ABS # 0.01 K/uL (0-0.2); COMPLETE YES; EOS % 0.1 %; HEMATOCRIT 31.7 % (37-47); IG% 0.4 %; LYMPH % 8.3 %; LYMPH ABS # 1.22 K/uL (1.2-3.4); MEAN CELL VOLUME 81.1 fL (80-100); MEAN CORPUSCULAR HEMOGLOBIN 25.8 pg (25-34); MEAN CORPUSCULAR HGB CONC 31.9 g/dl (32-36); MEAN PLATELET VOLUME 8.3 fL (7.4-10.4); MONO % 5.4 %; NEUT % 85.7 %; PLATELET COUNT 441 K/uL (130-400); RED BLOOD COUNT 3.91 M/uL (4.2-5.4); WHITE BLOOD COUNT 14.72 K/uL (4.8-10.8)
[2016-12-13 08:11] LABS: BUN/CREATININE RATIO 19.7 (10-20); CREATININE 0.73 mg/dl (0.60-1.20); MAGNESIUM 2.2 mg/dl (1.8-2.4); POTASSIUM 4.1 mmol/L (3.5-5.1)
[2016-12-13 08:30] LABS: CALCIUM 9.6 mg/dl (8.5-10.1)
[2016-12-13] MEDS: INSULIN ASPART 100 UNITS/ML 3 ML PEN SC SCH ×4 (10:15→21:04)
[2016-12-13] MEDS: ENOXAPARIN 40 MG/0.4 ML SYR SQ SCH (10:43)
[2016-12-13] MEDS: GUAIFENESIN 600 MG TABCR PO SCH ×2 (12:15→21:00)
[2016-12-13] MEDS: CITALOPRAM 40 MG TAB PO SCH (12:15)
[2016-12-13] MEDS: DIPYRIDAMOLE/ASPIRIN CAP PO SCH ×2 (12:15→21:00)
--- NOTE | 2016-12-13 12:16 | Progress Note ---
Subjective Date of Service: Dec 13, 2016. Subjective Pt evaluation today including: conversation w/ patient, physical exam, chart review, lab review, review of studies, conversation w/ it sales consultant, review of inpatient medication list Cough is better, was up and walk no other c/o Problem List Medical Problems: (1) Anterior dislocation of right shoulder Status: Acute (2) Right lower lobe pneumonia Status: Acute (3) Right shoulder pain Status: Acute (4) Sepsis Status: Acute Review of Systems Constitutional: No chills, No fatigue, No fever, No problem reported, No sweats , No weakness, No weight loss Eyes: No diplopia, No discharge, No eye pain, No redness, No worsening of vision ENT: No dental problems, No hearing loss, No nasal symptoms, No sore throat, No tinnitus, No trouble swallowing, No unusual epistaxis Respiratory: + cough, No dyspnea at rest, No dyspnea on exertion, No hemoptysis , No shortness of breath, No sputum, No wheezing Cardiac: No PND, No chest pain, No claudication, No edema, No orthopnea, No palpitations Abdomen: No constipation, No diarrhea, No nausea, No pain, No vomiting Musculoskeletal: No calf pain, No joint pain, No muscle pain, No swelling Female : No abnormal vaginal bleeding, No dysuria, No hematuria, No incontinence, No urinary frequency, No vaginal discharge Neurologic: No balance problems, No memory loss, No numbness/tingling, No paralysis, No vertigo, No weakness Psychiatric: No anhedonism, No anxiety, No depression symptoms, No insomnia, No substance abuse Heme: No abnormal bleeding/bruising, No clotting problems, No night sweats, No swollen lymph nodes Endo: No excessive thirst, No excessive urination, No fatigue Skin: No bleeding, No color change, No itch, No new/changing skin lesions, No rash Objective Vital Signs Date Time Temp Pulse Resp B/P Pulse Ox O2 Delivery O2 Flow Rate FiO2 12/13/16 10:30 Room Air 12/13/16 07:14 93 20 146/73 90 Room Air 12/13/16 07:11 86 14 90 Room Air 12/13/16 00:48 37.2 83 20 127/81 91 Room Air 12/13/16 00:00 91 Room Air 12/12/16 20:48 88 14 90 Room Air 12/12/16 16:28 94 Room Air 12/12/16 15:16 91 14 92 Room Air 12/12/16 14:51 36.8 88 18 148/87 90 Physical Exam General Appearance: WD/WN, no apparent distress Eyes: normal inspection, PERRL, EOMI, sclerae normal ENT: normal ENT inspection, hearing grossly normal, pharynx normal Neck: supple, no adenopathy, thyroid normal, no JVD, no carotid bruits, trachea midline Respiratory/Chest: chest non-tender, normal breath sounds, no respiratory distress, no accessory muscle use, + decreased breath sounds, + wheezing (mild) Cardiovascular: regular rate, rhythm, no edema, no gallop, no JVD, no murmur Abdomen: normal bowel sounds, non tender, soft, no organomegaly, no pulsatile mass Extremities: normal range of motion, non-tender, normal inspection, no pedal edema, no calf tenderness, normal capillary refill, pelvis stable 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, no motor/sensory deficits, alert, normal mood/affect, oriented x 3 Skin: normal color, warm/dry, no rash Lymphatic: no adenopathy Laboratory Results Last 24 Hours Test 12/12/16 16:21 12/12/16 20:16 12/13/16 07:00 12/13/16 07:36 Bedside Glucose 284 mg/dl 292 mg/dl 215 mg/dl White Blood Count 14.72 K/uL Red Blood Count 3.91 M/uL Hemoglobin 10.1 g/dL Hematocrit 31.7 % Mean Corpuscular Volume 81.1 fL Mean Corpuscular Hemoglobin 25.8 pg Mean Corpuscular Hemoglobin Concent 31.9 g/dl Platelet Count 441 K/uL Mean Platelet Volume 8.3 fL Neutrophils (%) (Auto) 85.7 % Lymphocytes (%) (Auto) 8.3 % Monocytes (%) (Auto) 5.4 % Eosinophils (%) (Auto) 0.1 % Basophils (%) (Auto) 0.1 % Neutrophils # (Auto) 12.62 K/uL Lymphocytes # (Auto) 1.22 K/uL Monocytes # (Auto) 0.80 K/uL Eosinophils # (Auto) 0.01 K/uL Basophils # (Auto) 0.01 K/uL RDW Standard Deviation 47.0 fL RDW Coefficient of Variation 15.9 % Immature Granulocyte % (Auto) 0.4 % Immature Granulocyte # (Auto) 0.06 K/uL Sodium Level 136 mmol/L Potassium Level 4.1 mmol/L Chloride Level 101 mmol/L Carbon Dioxide Level 24 mmol/L Anion Gap 11.0 mmol/L Blood Urea Nitrogen 14 mg/dl Creatinine 0.73 mg/dl Est Creatinine Clear Calc Drug Dose 76.4 ml/min Estimated GFR () 94.0 Estimated GFR (Non- 81.1 BUN/Creatinine Ratio 19.7 Random Glucose 225 mg/dl Calcium Level 9.6 mg/dl Magnesium Level 2.2 mg/dl Test 12/13/16 11:23 Bedside Glucose 248 mg/dl Assessment and Plan 76-year-old female admitted on 12/10/2016 with community-acquired pneumonia at the right lung base. Patient requires admission at this time for IV antibiotic treatment. Community Acquired PNA: stable and IMPROVING, w/ tachycardia and fever upon admission- RESOLVED: IV Levaquin x1 dose in ED; admitted w/ IV Azithromycin + Rocephin feel Levaquin is googdenough, Change IV Levaquin to by mouth Repeated chest x-ray shows right lower lung pneumonia, Discontinue Solu-Medrol start prednisone cont DuoNeb QID and q2 hrs - BCx pending , so far negative - Incentive spirometer - CXR- consistent w/ right lower lobe pneumonia T2DM: - Hold Metformin- resume at discharge - BSG ACHS w/ sliding insulin scale - ha1c 12/11/16- 6.8% h/o CVA: Continue Aggrenox Chronic Right shoulder pain: stable Continue Tylenol Anxiety: Continue Celexa 40 mg daily GERD: Continue Protonix- resume Prilosec at discharge GI Prophylaxis: Maalox PRN, IV Zofran PRN, Colace and/or Milk of Mag PRN DVT prophylaxis: Lovenox 40 mg daily Code Status: LEVEL I, FULL Disposition: From home, lives alone. PT/OT evaluations pending Increase activity, planning to discharge tomorrow to home Continued [facility] stay due to: multiple IV medications needed Discharge planning: home
[2016-12-13] MEDS: LEVOFLOXACIN 750 MG TAB PO SCH (18:23)
[2016-12-13] MEDS: PANTOprazole SOD 40 MG TAB PO SCH (21:01)
[2016-12-14] VITALS (11 sets, daily range): BP systolic 127–137; BP diastolic 71–78; PULSE 71–98; TEMP 36.7–36.8; O2SAT 92–94; Ht 167.6 cm; Wt 90.0 kg
[2016-12-14] MEDS: ZOLPIDEM TARTRATE 5 MG TAB PO PRN ×2 (01:07→23:23)
[2016-12-14] MEDS: ALBUT/IPRATROP 3MG/0.5MG NEB 3 ML VIAL INH SCH ×5 (01:10→19:14)
[2016-12-14] MEDS: INSULIN ASPART 100 UNITS/ML 3 ML PEN SC SCH ×4 (06:30→21:02)
[2016-12-14] MEDS: ENOXAPARIN 40 MG/0.4 ML SYR SQ SCH (08:00)
[2016-12-14] MEDS: DIPYRIDAMOLE/ASPIRIN CAP PO SCH ×2 (08:22→20:59)
[2016-12-14] MEDS: CITALOPRAM 40 MG TAB PO SCH (08:22)
[2016-12-14] MEDS: GUAIFENESIN 600 MG TABCR PO SCH ×2 (08:22→20:59)
--- NOTE | 2016-12-14 08:50 | Hospitalist Progress Note ---
Hospitalist Progress Note Date of Service Dec 14, 2016. Subjective Pt evaluation today including: conversation w/ patient, physical exam, chart review, lab review, review of inpatient medication list Voiding: no voiding problems, no incontinence Patient states she is feeling unwell this morning. She had a terrible night last night; stating "my cough is worse, I was wheezing, my nose is congested now , and I developed a fever. I feel like I am right back to where I started." She is eating and drinking OK. She has not had a bowel movement in a couple of days, which is not uncommon for here- asked for MiraLAX Patient denies any chills, sweats, lightheadedness, dizziness, vision changes, CP, palpitations, edema, SOB, abdominal pain, nausea, vomiting, diarrhea, urinary symptoms, melena, numbness/tingling, weakness, muscle/joint pain, anxiety/depression, active bleeding, or new skin discoloration/changes. Per nursing note, temperature checked last evening when patient states she developed a fever, temp of 36.6. Plan was for patient to be discharged today, but patient states she feels the same as she did when she was admitted and does not want to go home today. Medications Current Inpatient Medications Medications (Trade) Dose Ordered Sig/Kulwinder Route Start Time Stop Time Status Last Admin Dose Admin Enoxaparin Sodium (Lovenox Inj) 40 mg Q24H SQ 12/11/16 08:00 01/10/17 07:59 Acetaminophen (Tylenol Tab) 650 mg Q4H PRN PO 12/10/16 21:00 01/09/17 20:59 12/12/16 09:17 650 MG Al Hydrox/Mg Hydrox/Simethicone (Maalox Max Susp) 15 ml Q4H PRN PO 12/10/16 21:00 01/09/17 20:59 Magnesium Hydroxide (Milk Of Magnesia Susp) 30 ml Q6H PRN PO 12/10/16 21:00 01/09/17 20:59 Polyethylene (Miralax Powder Packet) 17 gm DAILY PRN PO 12/10/16 21:00 01/09/17 20:59 Ondansetron HCl (Zofran Inj) 4 mg Q6H PRN IV 12/10/16 21:00 01/09/17 20:59 Insulin Aspart (novoLOG ASPART) SLIDING SCALE G... ACHS SC 12/10/16 21:00 01/09/17 20:59 12/13/16 21:04 6 UNITS Citalopram Hydrobromide (celeXA TAB) 40 mg QAM PO 12/11/16 08:00 01/10/17 08:59 12/14/16 08:22 40 MG Dipyridamole/ Aspirin (Aggrenox 200MG/ 25MG Cap) 1 cap BID PO 12/10/16 21:00 01/09/17 20:59 12/14/16 08:22 1 CAP Pantoprazole Sodium (Protonix Tab) 40 mg HS PO 12/11/16 21:00 01/10/17 20:59 12/13/16 21:01 40 MG Albuterol/ Ipratropium (Duoneb) 3 ml QIDR INH 12/11/16 08:00 01/10/17 07:59 12/14/16 07:21 3 ML Guaifenesin (Mucinex Contr Rel Tab) 600 mg Q12 PO 12/11/16 21:00 01/10/17 20:59 12/14/16 08:22 600 MG Glucose (Glucose 40% Gel) 15-30 GRAMS 15 GRAMS... UD PRN PO 12/11/16 13:15 01/10/17 13:14 Glucose (Glucose Chew Tab) 4-8 Tablets 4 Tabl... UD PRN PO 12/11/16 13:15 01/10/17 13:14 Dextrose (Dextrose 50% 50ML Syringe) 25-50ML OF 50% DW IV FOR... UD PRN IV 12/11/16 13:15 01/10/17 13:14 Glucagon (Glucagon Inj) 1 mg UD PRN SQ 12/11/16 13:15 01/10/17 13:14 Zolpidem Tartrate (Ambien Tab) 5 mg HS PRN PO 12/12/16 10:15 01/11/17 10:14 12/14/16 01:07 5 MG Levofloxacin (Levaquin Tab) 750 mg DAILY@1800 PO 12/13/16 18:00 12/17/16 17:59 12/13/16 18:23 750 MG Prednisone (PredniSONE TAB) 50 mg DAILY PO 12/13/16 12:00 01/12/17 11:59 12/14/16 08:22 50 MG Objective Vital Signs Date Time Temp Pulse Resp B/P Pulse Ox O2 Delivery O2 Flow Rate FiO2 12/14/16 07:24 36.7 81 18 132/78 93 Room Air 12/14/16 07:21 71 14 93 Room Air 12/14/16 01:17 88 14 93 Room Air 12/14/16 00:00 93 Room Air 12/13/16 23:50 36.8 80 18 150/87 90 Room Air 12/13/16 16:00 93 Room Air 12/13/16 15:43 93 14 95 Room Air 12/13/16 15:30 36.5 103 18 110/68 93 Room Air 12/13/16 10:30 Room Air Physical Exam General Appearance: no apparent distress, + pertinent finding (moist, non- productive cough noted ) Eyes: normal inspection, PERRL ENT: hearing grossly normal Neck: supple Respiratory/Chest: no respiratory distress, no accessory muscle use, + crackles (right lower lung field ), + pertinent finding (poor inspiratory effort ) Cardiovascular: regular rate, rhythm Abdomen: normal bowel sounds, non tender, soft Extremities: no pedal edema, no calf tenderness Neurologic/Psychiatric: alert, normal mood/affect, oriented x 3 Skin: normal color, warm/dry, no rash Laboratory Results Last 24 Hours Test 12/13/16 11:23 12/13/16 16:39 12/13/16 20:30 12/13/16 22:28 Bedside Glucose 248 mg/dl 239 mg/dl 354 mg/dl 257 mg/dl Test 12/14/16 07:49 Bedside Glucose 125 mg/dl Assessment and Plan Pleasant 76-year-old female with community-acquired pneumonia at the right lung base. Patient requires admission at this time for IV antibiotic treatment. Community Acquired PNA- IMPROVING, w/ tachycardia and fever- RESOLVED: - IV Levaquin x1 dose in ED; admitted w/ IV Azithromycin + Rocephin -- Last day of Levaquin treatment 5/2 for 10 day treatment course - Mucinex - DuoNeb QID and q2 hrs - IV Solu-Medrol 20 mg TID, wean to PO Prednisone kendal - BCx NGTD - Incentive spirometer - CXR- consistent w/ right lower lobe pneumonia Leukocytosis, likely secondary to steroid treatment: Continue to monitor CBC- consider repeat CXR tomorrow if CBC worsens and patient's condition does not improve T2DM, w/ hyperglycemia likely secondary to steroid treatment: - Hold Metformin- resume at discharge - BSG ACHS w/ sliding insulin scale- adjusted on 12/14 by pharmacy due to hyperglycemia - ha1c 12/11/16- 6.8% h/o CVA: Continue Aggrenox Chronic right shoulder pain: Continue Tylenol Anxiety: Continue Celexa 40 mg daily GERD: Continue Protonix- resume Prilosec at discharge GI Prophylaxis: Maalox PRN, IV Zofran PRN, Colace and/or Milk of Mag PRN DVT prophylaxis: Lovenox 40 mg daily Code Status: LEVEL I, FULL Disposition: - Discharge to home in the next 1-2 days - PT/OT recommendations- patient OK to return home
[2016-12-14] MEDS ORDERED: CETIRIZINE HCL 10 MG TAB PO ONE (12:15)
[2016-12-14] MEDS: LEVOFLOXACIN 750 MG TAB PO SCH (18:14)
[2016-12-14] MEDS: PANTOprazole SOD 40 MG TAB PO SCH (20:59)
[2016-12-15] VITALS (8 sets, daily range): BP systolic 132–149; BP diastolic 70–83; PULSE 71–100; TEMP 36.7; O2SAT 90–95
[2016-12-15 06:30] LABS: HEMATOCRIT 34.5 % (37-47); MEAN CELL VOLUME 80.8 fL (80-100); MEAN CORPUSCULAR HEMOGLOBIN 25.1 pg (25-34); MEAN PLATELET VOLUME 8.4 fL (7.4-10.4); PLATELET COUNT 438 K/uL (130-400); RED BLOOD COUNT 4.27 M/uL (4.2-5.4); WHITE BLOOD COUNT 11.85 K/uL (4.8-10.8)
[2016-12-15] MEDS: ALBUT/IPRATROP 3MG/0.5MG NEB 3 ML VIAL INH SCH ×4 (08:00→19:04)
[2016-12-15] MEDS: ENOXAPARIN 40 MG/0.4 ML SYR SQ SCH (08:00)
[2016-12-15] MEDS: CITALOPRAM 40 MG TAB PO SCH (08:04)
[2016-12-15] MEDS: DIPYRIDAMOLE/ASPIRIN CAP PO SCH ×2 (08:04→21:13)
[2016-12-15] MEDS: CETIRIZINE HCL 10 MG TAB PO SCH (08:04)
[2016-12-15] MEDS: GUAIFENESIN 600 MG TABCR PO SCH ×2 (08:04→21:13)
[2016-12-15] MEDS ORDERED: IPRA1AER2 INH (08:35)
[2016-12-15] MEDS ORDERED: ZYR10 PO (08:35)
[2016-12-15] MEDS ORDERED: PRED10TA PO (08:35)
[2016-12-15] MEDS ORDERED: AMB5 PO (08:35)
[2016-12-15] MEDS ORDERED: GFNSR600 PO (08:35)
[2016-12-15] MEDS ORDERED: LVQ750 PO (08:35)
--- NOTE | 2016-12-15 08:35 | Discharge Instructions ---
Discharge Instructions Date of Service Dec 15, 2016. Admission Reason for Admission: Community Acquired Pneumonia Discharge Discharge Diagnosis / Problem: pneumonia Discharge Goals Goal(s): Decrease discomfort, Improve function, Increase independence, Improve disease control, Improve nutritional status, Learn about illness, Diagnostic testing, Therapeutic intervention, Prevent Disease Progression, Specific goals Activity Recommendations Activity Limitations: resume your previous activity Lifting Limitations: none . Instructions / Follow-Up Instructions / Follow-Up you have Community Acquired PNA: stable and IMPROVING, I am giving you Levaquin for 5 days more your blood glucose is high because you are on steroid, and you have diabetics be careful of fall at home - you need to follow up with your primary care physician in 1 week, - take medication as instructed, never overdose or any misuse, or take with alcohol, because misuse of medicine may cause organ damage or , call your primary care physician if have questions of medicaitons. - call your primary care physician OR go to local emergency room if has any fever/chill, chest pain, shortness of breathing, nausea/vomiting/abdominal pain , facial droop/slurry speech/local weakness, or if has any questions. - fall precaution - diet as instructed - you should understand that it is important to follow up the above instruction , and "not following the above instruction" may cause delayed or missed care of your medical conditions which may cause permanent organ damage and even . Current Hospital Diet Patient's current hospital diet: Diabetes Type 2 Diet Discharge Diet Recommended Diet: Diabetes Type 2 Diet Pending Studies Studies pending at discharge: no Laboratory Results Hemoglobin A1c Test 12/11/16 05:40 Range/Units Estimated Average Glucose 148 mg/dl Hemoglobin A1c 6.8 H 4.5-5.6 % Medical Emergencies . Who to Call and When: Medical Emergencies: If at any time you feel your situation is an emergency, please call 911 immediately. . Non-Emergent Contact Non-Emergency issues call your: Primary Care Provider . . "Provider Documentation" section prepared by Cuate Farah. . VTE Core Measure Inpt VTE Proph given/why not?: Enoxaparin (Lovenox)SQ, SCD's
[2016-12-15] MEDS: INSULIN ASPART 100 UNITS/ML 3 ML PEN SC SCH ×4 (08:54→21:00)
--- NOTE | 2016-12-15 08:57 | Discharge Summary ---
Discharge Summary Date of Service Dec 15, 2016. Discharge Summary Admission Date: Dec 10, 2016 at 21:01 Discharge Date: Dec 15, 2016 Principal Diagnosis: Community Acquired PNA Problems/Secondary Diagnoses: hyperglycemia because of on steroid, and you have diabetics Procedures: No Consultations: No Medication Reconciliation New Medications: Ipratropium-Albuterol (Combivent Respimat) 1 Aer Aer 1 PUFFS INH QID, #1 INH Prednisone Tab (Prednisone) 10 Mg Tab 10 MG PO BID for 8 Days, #24 TAB 10 mg tab , 3 tab po bid for 2 days then 2 tab po bid for 2 days then 1 tab po bid for 2 days then 1 tab po daily foe 2 days then stop Cetirizine HCl (All Day Allergy) 10 Mg Tab 10 MG PO QAM for 7 Days, #7 TAB Guaifenesin Ext Rel (Mucinex Ext Rel) 600 Mg Tabcr 600 MG PO Q12 for 7 Days Levofloxacin (Levofloxacin) 750 Mg Tab 750 MG PO DAILY@1800 for 5 Days, TAB Zolpidem Tartrate (Zolpidem Tartrate) 5 Mg Tab 5 MG PO HS PRN for Sleep for 7 Days, TAB Continued Medications: Acetaminophen (Tylenol) 500 Mg Tab 500 MG PO Q6H PRN for Fever, TAB Ascorbic Acid (Vitamin C) 500 Mg Cap 500 MG PO BID Calcium Phosphate-Cholecalcife (Caltrate Gummy Bites) 1 Chw Chw 1 TAB PO DAILY Cholecalciferol (Vitamin D) 1,000 Unit Tab 1000 UNITS PO QAM Citalopram (Citalopram Hydrobromide) 40 Mg Tab 40 MG PO QAM Cyanocobalamin (Vitamin B-12) Unknown Strength Tab Unknown Dose PO EVERY 3RD DAY, TAB Dipyridamole/Aspirin (Aggrenox 25-200 mg) 1 Cap Cap 1 CAP PO BID for 90 Days, #180 CAP 3 Refills Magnesium Oxide (Magnesium) 250 Mg Tab 250 MG PO BID Metformin Hcl (Glucophage) 850 Mg Tab 850 MG PO BIDM, TAB Multivitamin (Multivitamin) Tab 1 TAB PO QAM, TAB Omeprazole (Prilosec) 20 Mg Cap 20 MG PO HS, CAP Triamcinolone Acetonide (Nasal (Nasacort Allergy 24Hr) 55 Mcg/Act Spr 1 SPRAY KADY QAM Discharge Exam Feeling tired, not out of bed yet, not eating yet, but conversational, no cough no difficult breathing Review of Systems: Constitutional: No chills, No fatigue, No fever, No problem reported, No sweats, No weakness, No weight loss Eyes: No diplopia, No discharge, No eye pain, No problem reported, No redness, No worsening of vision ENT: No dental problems, No hearing loss, No nasal symptoms, No problem reported, No sore throat, No tinnitus, No trouble swallowing, No unusual epistaxis Respiratory: No cough, No dyspnea at rest, No dyspnea on exertion, No hemoptysis, No problem reported, No shortness of breath, No sputum, No wheezing Cardiovascular: No PND, No chest pain, No claudication, No edema, No orthopnea, No palpitations, No problem reported Abdomen: No GI bleeding, No constipation, No diarrhea, No nausea, No pain, No problem reported, No vomiting Musculoskeletal: No calf pain, No joint pain, No muscle pain, No problem reported, No swelling Genitourinary - Female: No dysmenorrhea, No dysuria, No hematuria, No menorrhagia, No metrorrhagia, No , No problem reported, No rash, No urinary frequency, No urinary incontinence, No urinary retention, No urinary urgency, No vaginal bleeding, No vaginal discharge, No vaginal itching, No vulvodynia Neurologic: No balance problems, No memory loss, No numbness/tingling, No paralysis, No problem reported, No vertigo, No weakness Psychiatric: No anhedonism, No anxiety, No depression symptoms, No insomnia , No problem reported, No substance abuse Endocrine: No excessive thirst, No excessive urination, No fatigue, No problem reported Hematologic / Lymphatic: No abnormal bleeding/bruising, No clotting problems , No night sweats, No problem reported, No swollen lymph nodes Integumentary: No bleeding, No color change, No itch, No new/changing skin lesions, No problem reported, No rash Physical Exam: General Appearance: WD/WN Eyes: normal inspection ENT: normal ENT inspection Neck: supple Respiratory/Chest: chest non-tender, + decreased breath sounds Cardiovascular: regular rate, rhythm Abdomen / GI: normal bowel sounds Extremities: normal inspection 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 Patient requires admission at this time for IV antibiotic treatment. Community Acquired PNA: stable and IMPROVING, w/ tachycardia and fever upon admission- RESOLVED: IV Levaquin x1 dose in ED; admitted w/ IV Azithromycin + Rocephin feel Levaquin is good enough, Change IV Levaquin to by mouth, will give totally 10 days Repeated chest x-ray shows right lower lung pneumonia, Discontinue Solu-Medrol start prednisone, we'll give tapering dose Has been on DuoNeb QID and q2 hrs , will give Combivent - BCx pending , so far negative - Incentive spirometer - CXR- consistent w/ right lower lobe pneumonia T2DM: - Hold Metformin- resumed at discharge - BSG ACHS w/ sliding insulin scale - ha1c 12/11/16- 6.8% - Told her to call PCP if blood glucose more than 400, all if not feeling well h/o CVA: Continue Aggrenox Chronic Right shoulder pain: stable Continue Tylenol Anxiety: Continue Celexa 40 mg daily GERD: Continue Protonix- resume Prilosec at discharge GI Prophylaxis: Maalox PRN, IV Zofran PRN, Colace and/or Milk of Mag PRN DVT prophylaxis: Lovenox 40 mg daily Code Status: LEVEL I, FULL Disposition: From home, lives alone. PT/OT, per P.T. Note , patient reported having bouts of dizziness yesterday . She had a drop of 22mmHg in her SBP when moving from seated to standing, but was asymptomatic at that time. Patient was educated change slowly when change positions and fall precaution, follow-up with PCP, per Physical therapist Pt's balance was noted to be improved from initial evaluation as pt had no LOB during ambulation. She will continue to benefit from acute P.T. during her admission. She is anticipated to return home following discharge with continued out-patient P.T. to address her right shoulder impairments. I have recommended outpatient PT of right shoulder impairment in the discharge instruction, PCP please follow-up. Increase activity, planning to discharge Instructions / Follow-Up you have Community Acquired PNA: stable and IMPROVING, I am giving you Levaquin for 5 days more your blood glucose is high because you are on steroid, and you have diabetics be careful of fall at home - you need to follow up with your primary care physician in 1 week, - take medication as instructed, never overdose or any misuse, or take with alcohol, because misuse of medicine may cause organ damage or , call your primary care physician if have questions of medicaitons. - call your primary care physician OR go to local emergency room if has any fever/chill, chest pain, shortness of breathing, nausea/vomiting/abdominal pain , facial droop/slurry speech/local weakness, or if has any questions. - fall precaution - diet as instructed - outpatient PT from your pcp for right shoulder impairment - you should understand that it is important to follow up the above instruction , and "not following the above instruction" may cause delayed or missed care of your medical conditions which may cause permanent organ damage and even . Total Time Spent: Greater than 30 minutes This includes examination of the patient, discharge planning, medication reconciliation, and communication with other providers. Discharge Instructions Please refer to the electronic Patient Visit Report (Discharge Instructions) for additional information. Additional Copies To Chavo Jung M.D.
[2016-12-15] MEDS ORDERED: INSULIN ASPART 100 UNITS/ML 3 ML PEN SC ONE (17:30)
[2016-12-15] MEDS ORDERED: NURSING VERBAL MED ORDER ONE (17:30)
[2016-12-15] MEDS: LEVOFLOXACIN 750 MG TAB PO SCH (18:19)
[2016-12-15] MEDS: PANTOprazole SOD 40 MG TAB PO SCH (21:12)
[2016-12-15] MEDS: ZOLPIDEM TARTRATE 5 MG TAB PO PRN (23:36)
[2016-12-16] VITALS (8 sets, daily range): BP systolic 135–146; BP diastolic 78–81; PULSE 77–98; TEMP 36.7–36.8; O2SAT 90–96
[2016-12-16] MEDS: ALBUT/IPRATROP 3MG/0.5MG NEB 3 ML VIAL INH SCH ×4 (07:11→19:05)
[2016-12-16 08:13] LABS: HEMATOCRIT 34.7 % (37-47); MEAN CORPUSCULAR HEMOGLOBIN 25.6 pg (25-34); MEAN PLATELET VOLUME 8.3 fL (7.4-10.4); PLATELET COUNT 443 K/uL (130-400); RED BLOOD COUNT 4.34 M/uL (4.2-5.4); WHITE BLOOD COUNT 12.16 K/uL (4.8-10.8)
--- NOTE | 2016-12-16 09:17 | Progress Note ---
Subjective Date of Service: Dec 16, 2016. Subjective Pt evaluation today including: conversation w/ patient, physical exam, chart review, lab review, review of studies, review of inpatient medication list Declined going home yesterday Reported still some cough sputum and some wheezing Problem List Medical Problems: (1) Anterior dislocation of right shoulder Status: Acute (2) Right lower lobe pneumonia Status: Acute (3) Right shoulder pain Status: Acute (4) Sepsis Status: Acute Review of Systems Constitutional: No chills, No fatigue, No fever, No problem reported, No sweats , No weakness, No weight loss Eyes: No diplopia, No discharge, No eye pain, No redness, No worsening of vision ENT: No dental problems, No hearing loss, No nasal symptoms, No sore throat, No tinnitus, No trouble swallowing, No unusual epistaxis Respiratory: + cough, + see HPI, + sputum, + wheezing, No dyspnea at rest, No dyspnea on exertion, No hemoptysis, No shortness of breath Cardiac: No PND, No chest pain, No claudication, No edema, No orthopnea, No palpitations Abdomen: No constipation, No diarrhea, No nausea, No pain, No vomiting Musculoskeletal: No calf pain, No joint pain, No muscle pain, No swelling Female : No abnormal vaginal bleeding, No dysuria, No hematuria, No incontinence, No urinary frequency, No vaginal discharge Neurologic: No balance problems, No memory loss, No numbness/tingling, No paralysis, No vertigo, No weakness Psychiatric: No anhedonism, No anxiety, No depression symptoms, No insomnia, No substance abuse Heme: No abnormal bleeding/bruising, No clotting problems, No night sweats, No swollen lymph nodes Endo: No excessive thirst, No excessive urination, No fatigue Skin: No bleeding, No color change, No itch, No new/changing skin lesions, No rash Objective Vital Signs Date Time Temp Pulse Resp B/P Pulse Ox O2 Delivery O2 Flow Rate FiO2 12/16/16 07:38 77 16 96 Room Air 12/16/16 07:12 77 18 96 Room Air 12/16/16 00:54 Room Air 12/15/16 22:59 36.7 100 22 149/70 94 Room Air 12/15/16 19:04 82 18 92 Room Air 12/15/16 16:00 94 Room Air 12/15/16 15:42 83 16 91 Room Air 12/15/16 15:07 36.7 88 18 132/75 94 12/15/16 13:47 36.7 76 16 95 Room Air 12/15/16 11:18 76 16 95 Room Air Physical Exam General Appearance: WD/WN, no apparent distress Eyes: normal inspection, PERRL, EOMI, sclerae normal ENT: normal ENT inspection, hearing grossly normal, pharynx normal Neck: supple, no adenopathy, thyroid normal, no JVD, no carotid bruits, trachea midline Respiratory/Chest: chest non-tender, normal breath sounds, no respiratory distress, no accessory muscle use, + wheezing (occasional) Cardiovascular: regular rate, rhythm, no edema, no gallop, no JVD, no murmur Abdomen: normal bowel sounds, non tender, soft, no organomegaly, no pulsatile mass Extremities: normal range of motion, non-tender, normal inspection, no pedal edema, no calf tenderness, normal capillary refill, pelvis stable 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, no motor/sensory deficits, alert, normal mood/affect, oriented x 3 Skin: normal color, warm/dry, no rash Lymphatic: no adenopathy Laboratory Results Last 24 Hours Test 12/15/16 11:41 12/15/16 16:35 12/15/16 20:12 12/16/16 07:26 Bedside Glucose 289 mg/dl 350 mg/dl 161 mg/dl 281 mg/dl Test 12/16/16 07:57 White Blood Count 12.16 K/uL Red Blood Count 4.34 M/uL Hemoglobin 11.1 g/dL Hematocrit 34.7 % Mean Corpuscular Volume 80.0 fL Mean Corpuscular Hemoglobin 25.6 pg Mean Corpuscular Hemoglobin Concent 32.0 g/dl RDW Standard Deviation 45.0 fL RDW Coefficient of Variation 15.4 % Platelet Count 443 K/uL Mean Platelet Volume 8.3 fL Assessment and Plan 76-year-old female admitted on 12/10/2016 with community-acquired pneumonia at the right lung base. Patient requires admission at this time for IV antibiotic treatment. Community Acquired PNA: Continue stable and IMPROVING, w/ tachycardia and fever upon admission- RESOLVED: IV Levaquin x1 dose in ED; admitted w/ IV Azithromycin + Rocephin feel Levaquin is good enough, Change IV Levaquin to by mouth, will give totally 10 days Repeated chest x-ray shows right lower lung pneumonia, Discontinue Solu-Medrol start prednisone, has started tapering dose Has been on DuoNeb QID and q2 hrs , will give Combivent upon discharge - BCx finalized and negative - Incentive spirometer - CXR- consistent w/ right lower lobe pneumonia T2DM: - Hold Metformin- resumed at discharge - BSG ACHS w/ sliding insulin scale - ha1c 12/11/16- 6.8% - Told her to call PCP if blood glucose more than 400, or if not feeling well h/o CVA: Continue Aggrenox Chronic Right shoulder pain: stable Continue Tylenol Anxiety: Continue Celexa 40 mg daily GERD: Continue Protonix- resume Prilosec at discharge GI Prophylaxis: Maalox PRN, IV Zofran PRN, Colace and/or Milk of Mag PRN DVT prophylaxis: Lovenox 40 mg daily Code Status: LEVEL I, FULL Disposition: From home, lives alone. PT/OT, per P.T. Note , patient reported having bouts of dizziness yesterday . She had a drop of 22mmHg in her SBP when moving from seated to standing, but was asymptomatic at that time. Patient was educated change slowly when change positions and fall precaution, follow-up with PCP, per Physical therapist Pt's balance was noted to be improved from initial evaluation as pt had no LOB during ambulation. She will continue to benefit from acute P.T. during her admission. She is anticipated to return home following discharge with continued out-patient P.T. to address her right shoulder impairments. I have recommended outpatient PT of right shoulder impairment in the discharge instruction, PCP please follow-up. Increase activity, With present of registered nurse, discussed with patient about care plan, planning to discharge today Continued [facility] stay due to: multiple IV medications needed Discharge planning: home
[2016-12-16] MEDS: INSULIN ASPART 100 UNITS/ML 3 ML PEN SC SCH ×4 (09:45→20:54)
[2016-12-16] MEDS: DIPYRIDAMOLE/ASPIRIN CAP PO SCH ×2 (09:46→20:54)
[2016-12-16] MEDS: CITALOPRAM 40 MG TAB PO SCH (09:46)
[2016-12-16] MEDS: GUAIFENESIN 600 MG TABCR PO SCH ×2 (09:48→20:51)
[2016-12-16] MEDS: CETIRIZINE HCL 10 MG TAB PO SCH (09:48)
[2016-12-16] MEDS: ENOXAPARIN 40 MG/0.4 ML SYR SQ SCH (09:49)
[2016-12-16] MEDS ORDERED: NURSING VERBAL MED ORDER ONE ×2 (11:45→14:30)
[2016-12-16] MEDS ORDERED: NovoLOG PER UNIT CHARGE SC ONE (12:15)
[2016-12-16] MEDS ORDERED: PHARMACY GLYCEMIC MGMT CONSULT PRN (14:50)
--- NOTE | 2016-12-16 15:54 | Pharmacy Progress Note ---
Glycemic Control Intl Consult Date of Service Dec 16, 2016. Scope Glycemic Pharmacist consulted for glycemic control and to write orders per [facility] inpatient glycemic control protocol Objective Weight (Kilograms): 90.000 Accuchecks BSG (last 24hrs): Test 12/15/16 16:35 12/15/16 20:12 12/16/16 07:26 12/16/16 11:19 Bedside Glucose 350 mg/dl (70-90) 161 mg/dl (70-90) 281 mg/dl (70-90) 343 mg/dl (70-90) Test 12/16/16 14:06 Bedside Glucose 381 mg/dl (70-90) Laboratory Data (last 24hrs) Test 12/16/16 07:57 White Blood Count 12.16 K/uL HbA1c Test 12/11/16 05:40 Hemoglobin A1c 6.8 % (4.5-5.6) H Recent Pertinent Medications Outpatient Anti-diabetic Regimen: * Metformin 850 mg po BIDM * A1c = 6.8 % 12/11/16 The patient is currently receiving: * Basal insulin: None * Correctional Insulin: Novolog Correction per scale ACHS Goal Range: Low 140 mg/dL - High 180 mg/dL Correction Factor: 30 mg/dL/unit * Prandial insulin: Per carb ratio of 1 unit per 10 grams CHO consumed * Oral Agents: On hold Risk Factors for Insulin Resistance: * Steroids: Prednisone 30 mg po BID * Infection: levofloxacin po * Diet: T2DM Assessment & Plan ASSESSMENT: * ADA & AACE recommend a goal blood sugar range 140-180 mg/dl for the majority of critically ill & non-critically ill patients. However, more stringent targets may be selected in individual cases. 12/16/16 * 76 yo F with steroid-induced hyperglycemia * Will add basal insulin x1 at higher dose now, then ongoing BID based on BSG * Patient received a significant amount of insulin at lunch today, similar to total daily dose yesterday (30 units total). * Will keep goal range high * Will only slightly tighten correction factor and carb ratio for now * Will add BSG check overnight PLAN FOR INPATIENT GLYCEMIC CONTROL: * Resume metformin tonight * Basal insulin with LANTUS 18 units SQ x1 now then ongoing BID based on BSG * 0 units for BSG < 120 mg/dL * 8 units for BSG 120-179 mg/dL * 16 units for BSG 180 mg/dL or above * Correctional Insulin with NOVOLOG per scale ACHS or Q6hrs while NPO - add check at 0200 * Goal Range: Low 140 mg/dL - High 180 mg/dL * Correction Factor: 25 mg/dL/unit * Nutritional / Prandial insulin per carb ratio of 1 unit per 9 grams CHO consumed * Please note that the plan above was derived based on current level of insulin resistance and hospital stress. These recommendations are appropriate for inpatient admission only. Plan of care upon discharge will need to be reassessed to avoid potential outpatient hypo/hyperglycemia. Thank you.
[2016-12-16] MEDS ORDERED: INSULIN GLARGINE SOLOSTAR 100 UNITS/ML 3 ML PEN SC ONE (16:30)
[2016-12-16] MEDS: METFORMIN HCL 850 MG TAB PO SCH (17:04)
[2016-12-16] MEDS: LEVOFLOXACIN 750 MG TAB PO SCH (17:45)
[2016-12-16] MEDS: PANTOprazole SOD 40 MG TAB PO SCH (20:52)
[2016-12-16] MEDS: ZOLPIDEM TARTRATE 5 MG TAB PO PRN (23:20)
[2016-12-17] MEDS ORDERED: INSULIN ASPART 100 UNITS/ML 3 ML PEN SC ONE (02:00)
[2016-12-17 07:26] LABS: MEAN CELL VOLUME 80.1 fL (80-100); MEAN CORPUSCULAR HEMOGLOBIN 26.1 pg (25-34); MEAN CORPUSCULAR HGB CONC 32.6 g/dl (32-36); MEAN PLATELET VOLUME 8.5 fL (7.4-10.4); PLATELET COUNT 449 K/uL (130-400); RED BLOOD COUNT 4.37 M/uL (4.2-5.4); WHITE BLOOD COUNT 16.43 K/uL (4.8-10.8)
[2016-12-17 07:29] VITALS: BP 151/86; PULSE 72; TEMP 36.5; O2SAT 93
[2016-12-17] MEDS: ALBUT/IPRATROP 3MG/0.5MG NEB 3 ML VIAL INH SCH (08:00)
[2016-12-17 08:03] VITALS: PULSE 76; O2SAT 93
[2016-12-17] MEDS: ENOXAPARIN 40 MG/0.4 ML SYR SQ SCH (09:59)
[2016-12-17] MEDS: DIPYRIDAMOLE/ASPIRIN CAP PO SCH ×2 (10:02→20:21)
[2016-12-17] MEDS: CITALOPRAM 40 MG TAB PO SCH (10:02)
[2016-12-17] MEDS: METFORMIN HCL 850 MG TAB PO SCH ×2 (10:02→17:15)
[2016-12-17] MEDS: CETIRIZINE HCL 10 MG TAB PO SCH (10:03)
[2016-12-17] MEDS: GUAIFENESIN 600 MG TABCR PO SCH ×2 (10:03→20:21)
[2016-12-17] MEDS: INSULIN ASPART 100 UNITS/ML 3 ML PEN SC SCH ×4 (10:07→20:37)
[2016-12-17] MEDS: INSULIN GLARGINE SOLOSTAR 100 UNITS/ML 3 ML PEN SC SCH ×2 (10:07→20:37)
[2016-12-17] MEDS: IPRATROPIUM BROMIDE/ALBUTEROL respimat INH INH SCH ×3 (12:25→20:21)
--- NOTE | 2016-12-17 13:43 | Pharmacy Progress Note ---
Glycemic Control: Progress Nt Date of Service Dec 17, 2016. Scope Glycemic Pharmacist consulted for glycemic control and to write orders per [facility] inpatient glycemic control protocol. Objective Accuchecks BSG (last 24hrs): Test 12/16/16 14:06 12/16/16 16:06 12/16/16 20:22 12/17/16 02:32 Bedside Glucose 381 mg/dl (70-90) 201 mg/dl (70-90) 122 mg/dl (70-90) 242 mg/dl (70-90) Test 12/17/16 08:01 12/17/16 11:34 Bedside Glucose 162 mg/dl (70-90) 181 mg/dl (70-90) Laboratory Data (last 24hrs) Test 12/17/16 07:16 White Blood Count 16.43 K/uL HbA1c: Test 12/11/16 05:40 Hemoglobin A1c 6.8 % (4.5-5.6) H Recent Pertinent Medications Outpatient Anti-diabetic Regimen: * Metformin 850 mg po BIDM * A1c = 6.8 % 12/11/16 The patient is currently receiving: * Basal insulin with LANTUS 18 units SQ x1 12/16 PM then ongoing BID based on BSG * 0 units for BSG < 120 mg/dL * 8 units for BSG 120-179 mg/dL * 16 units for BSG 180 mg/dL or above * Correctional Insulin with NOVOLOG per scale ACHS or Q6hrs while NPO - add check at 0200 * Goal Range: Low 140 mg/dL - High 180 mg/dL * Correction Factor: 25 mg/dL/unit * Nutritional / Prandial insulin per carb ratio of 1 unit per 9 grams CHO consumed * Oral Agents: metformin 850 mg po BIDM Risk Factors for Insulin Resistance: * Steroids: Prednisone 30 mg po BID tapered to 30 mg daily starting today * Infection: levofloxacin po * Diet: T2DM Assessment & Plan ASSESSMENT: * ADA & AACE recommend a goal blood sugar range 140-180 mg/dl for the majority of critically ill & non-critically ill patients. However, more stringent targets may be selected in individual cases. 12/16/16 * 76 yo F with steroid-induced hyperglycemia * Will add basal insulin x1 at higher dose now, then ongoing BID based on BSG * Patient received a significant amount of insulin at lunch today, similar to total daily dose yesterday (30 units total). * Will keep goal range high * Will only slightly tighten correction factor and carb ratio for now * Will add BSG check overnight 12/17/16 * BSG's significantly improved, ranging 122-242 mg/dL over the last 24 hours * Steroids tapering today, equating to eliminating the PM dose of prednisone. BSG's overnight may therefore be more sensitive to basal insulin on board. Will decrease Lantus slightly. * OK to continue Novolog as ordered PLAN FOR INPATIENT GLYCEMIC CONTROL: * Continue metformin 850 mg po BIDM * Decrease basal insulin with LANTUS BID based on BSG * 0 units for BSG < 120 mg/dL * 6 units for BSG 120-179 mg/dL * 12 units for BSG 180 mg/dL or above * Correctional Insulin with NOVOLOG per scale ACHS or Q6hrs while NPO - add check at 0200 * Goal Range: Low 140 mg/dL - High 180 mg/dL * Correction Factor: 25 mg/dL/unit * Nutritional / Prandial insulin per carb ratio of 1 unit per 9 grams CHO consumed Discharge Assessment * Patient to be sent home on prednisone taper * Not on insulin at home, does not check BSG's per MD * May require insulin at home to prevent DKA/HHS while on steroids. However, complicated by both steroid taper and no home insulin prior to this admit Plan * Assess insulin requirements over the next 24 hours * Consult early childhood educator aide in AM * Discuss discharge plans with primary service in AM * Please note that the plan above was derived based on current level of insulin resistance and hospital stress. These recommendations are appropriate for inpatient admission only. Plan of care upon discharge will need to be reassessed to avoid potential outpatient hypo/hyperglycemia. Thank you.
--- NOTE | 2016-12-17 13:51 | Progress Note ---
Subjective Date of Service: Dec 17, 2016. Subjective Pt evaluation today including: conversation w/ patient, conversation w/ family , physical exam, chart review, lab review, review of studies, review of inpatient medication list Report tired, and dizziness when up and walk, still has some cough, and some wheezing Problem List Medical Problems: (1) Anterior dislocation of right shoulder Status: Acute (2) Right lower lobe pneumonia Status: Acute (3) Right shoulder pain Status: Acute (4) Sepsis Status: Acute Review of Systems Constitutional: No chills, No fatigue, No fever, No problem reported, No sweats , No weakness, No weight loss Eyes: No diplopia, No discharge, No eye pain, No redness, No worsening of vision ENT: No dental problems, No hearing loss, No nasal symptoms, No sore throat, No tinnitus, No trouble swallowing, No unusual epistaxis Respiratory: + cough, + see HPI, + wheezing, No dyspnea at rest, No dyspnea on exertion, No hemoptysis, No shortness of breath, No sputum Cardiac: No PND, No chest pain, No claudication, No edema, No orthopnea, No palpitations Abdomen: No constipation, No diarrhea, No nausea, No pain, No vomiting Musculoskeletal: No calf pain, No joint pain, No muscle pain, No swelling Female : No abnormal vaginal bleeding, No dysuria, No hematuria, No incontinence, No urinary frequency, No vaginal discharge Neurologic: No balance problems, No memory loss, No numbness/tingling, No paralysis, No vertigo, No weakness Psychiatric: No anhedonism, No anxiety, No depression symptoms, No insomnia, No substance abuse Heme: No abnormal bleeding/bruising, No clotting problems, No night sweats, No swollen lymph nodes Endo: No excessive thirst, No excessive urination, No fatigue Skin: No bleeding, No color change, No itch, No new/changing skin lesions, No rash Objective Vital Signs Date Time Temp Pulse Resp B/P Pulse Ox O2 Delivery O2 Flow Rate FiO2 12/17/16 08:03 76 18 93 Room Air 12/17/16 08:00 Room Air 12/17/16 07:29 36.5 72 17 151/86 93 Room Air 12/17/16 00:00 Room Air 12/16/16 23:42 36.8 81 20 146/81 91 Room Air 12/16/16 20:00 Room Air 12/16/16 19:05 95 18 92 Room Air 12/16/16 16:00 Room Air 12/16/16 15:37 77 18 93 Room Air 12/16/16 15:06 36.8 81 16 144/78 92 Room Air Physical Exam General Appearance: WD/WN, no apparent distress, + pertinent finding (looks a little tired) Eyes: normal inspection, PERRL, EOMI, sclerae normal ENT: normal ENT inspection, hearing grossly normal, pharynx normal Neck: supple, no adenopathy, thyroid normal, no JVD, no carotid bruits, trachea midline Respiratory/Chest: chest non-tender, lungs clear, normal breath sounds, no respiratory distress, no accessory muscle use Cardiovascular: regular rate, rhythm, no edema, no gallop, no JVD, no murmur Abdomen: normal bowel sounds, non tender, soft, no organomegaly, no pulsatile mass Extremities: normal range of motion, non-tender, normal inspection, no pedal edema, no calf tenderness, normal capillary refill, pelvis stable 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, no motor/sensory deficits, alert, normal mood/affect, oriented x 3, + abnormal cerebellar tests Skin: normal color, warm/dry, no rash Lymphatic: no adenopathy Laboratory Results Last 24 Hours Test 12/16/16 14:06 12/16/16 16:06 12/16/16 20:22 12/17/16 02:32 Bedside Glucose 381 mg/dl 201 mg/dl 122 mg/dl 242 mg/dl Test 12/17/16 07:16 12/17/16 08:01 12/17/16 11:34 White Blood Count 16.43 K/uL Red Blood Count 4.37 M/uL Hemoglobin 11.4 g/dL Hematocrit 35.0 % Mean Corpuscular Volume 80.1 fL Mean Corpuscular Hemoglobin 26.1 pg Mean Corpuscular Hemoglobin Concent 32.6 g/dl RDW Standard Deviation 45.9 fL RDW Coefficient of Variation 15.7 % Platelet Count 449 K/uL Mean Platelet Volume 8.5 fL Bedside Glucose 162 mg/dl 181 mg/dl Assessment and Plan 76-year-old female admitted on 12/10/2016 with community-acquired pneumonia at the right lung base. Patient requires admission at this time for IV antibiotic treatment. Community Acquired PNA: Continue stable and IMPROVING, w/ tachycardia and fever upon admission- RESOLVED: IV Levaquin x1 dose in ED; admitted w/ IV Azithromycin + Rocephin feel Levaquin is good enough, Change IV Levaquin to by mouth, will give totally 10 days, today states 7 out of 10 Repeated chest x-ray shows right lower lung pneumonia, Discontinue Solu-Medrol start prednisone, has started tapering dose, today's is on prednisone 30 mg by mouth daily, need to continue tapering Has been on DuoNeb QID and q2 hrs , will give Combivent upon discharge - BCx finalized and negative - Incentive spirometer - CXR- consistent w/ right lower lobe pneumonia T2DM: With hyperglycemia because of steroid, she required more than 60 unit of insulin yesterday, she does not getting insulin at home, she possible not able to give insulin when she going home by herself - She was on oral blood glucose medicine at home - Although I have started tapering down prednisone, however because of patient' s and specific symptoms and significant high blood glucose and required a big amount of insulin, I'm not feel comfortable to that her go home today - Hold Metformin- resumed at discharge - BSG ACHS w/ sliding insulin scale - ha1c 12/11/16- 6.8% - Told her to call PCP if blood glucose more than 400, or if not feeling well h/o CVA: Continue Aggrenox Chronic Right shoulder pain: stable Continue Tylenol Anxiety: Continue Celexa 40 mg daily GERD: Continue Protonix- resume Prilosec at discharge GI Prophylaxis: Maalox PRN, IV Zofran PRN, Colace and/or Milk of Mag PRN DVT prophylaxis: Lovenox 40 mg daily Code Status: LEVEL I, FULL Disposition: From home, lives alone. PT/OT, per P.T. Note , patient reported having bouts of dizziness yesterday . She had a drop of 22mmHg in her SBP when moving from seated to standing, but was asymptomatic at that time. Patient was educated change slowly when change positions and fall precaution, follow-up with PCP, per Physical therapist Pt's balance was noted to be improved from initial evaluation as pt had no LOB during ambulation. She will continue to benefit from acute P.T. during her admission. She is anticipated to return home following discharge with continued out-patient P.T. to address her right shoulder impairments. I have recommended outpatient PT of right shoulder impairment in the discharge instruction, PCP please follow-up. Increase activity, Although I have started tapering down prednisone, however because of patient's none specific symptoms and significant high blood glucose which required a big amount of insulin , > 60 unit yesterday, I'm not feel comfortable to that her go home today Has ordered tapering down of prednisone, medicine reconstitutes initiation has done by me, but need to be updated of the antibiotics and a tapering dose of prednisone, I checking orthostatic blood pressure is well Continued [facility] stay due to: home environment unsafe for pt Discharge planning: home
[2016-12-17 16:10] VITALS: BP_SYST 113; BP_SYST 117; BP_SYST 120; BP_DIAS 73; BP_DIAS 74; BP_DIAS 75; PULSE 85; TEMP 36.6; O2SAT 95
[2016-12-17] MEDS: ACETAMINOPHEN 325 MG TAB PO PRN (16:10)
[2016-12-17] MEDS: PANTOprazole SOD 40 MG TAB PO SCH (20:21)
[2016-12-17] MEDS: ZOLPIDEM TARTRATE 5 MG TAB PO PRN (23:20)
[2016-12-17 23:58] VITALS: BP 132/72; PULSE 87; TEMP 36.4; O2SAT 94
[2016-12-18 05:59] LABS: BASO ABS # 0.01 K/uL (0-0.2); COMPLETE YES; EOS % 0.7 %; HEMATOCRIT 34.7 % (37-47); IG% 0.6 %; LYMPH % 23.6 %; LYMPH ABS # 4.73 K/uL (1.2-3.4); MEAN CELL VOLUME 80.5 fL (80-100); MEAN CORPUSCULAR HEMOGLOBIN 26.7 pg (25-34); MEAN CORPUSCULAR HGB CONC 33.1 g/dl (32-36); MEAN PLATELET VOLUME 8.4 fL (7.4-10.4); MONO % 4.8 %; NEUT % 70.3 %; PLATELET COUNT 514 K/uL (130-400); RED BLOOD COUNT 4.31 M/uL (4.2-5.4); WHITE BLOOD COUNT 20.01 K/uL (4.8-10.8)
[2016-12-18 06:42] LABS: BLOOD UREA NITROGEN 18 mg/dl (7-18); CARBON DIOXIDE 26 mmol/L (21-32); CHLORIDE 102 mmol/L (98-107); CREATININE 0.71 mg/dl (0.60-1.20); GLUCOSE 115 mg/dl (70-99); SODIUM 136 mmol/L (136-145)
[2016-12-18 07:46] VITALS: BP 144/81; PULSE 76; TEMP 36.5; O2SAT 93
[2016-12-18 08:30] VITALS: O2SAT 93
[2016-12-18] MEDS: CITALOPRAM 40 MG TAB PO SCH (08:52)
[2016-12-18] MEDS: DIPYRIDAMOLE/ASPIRIN CAP PO SCH ×2 (08:52→20:53)
[2016-12-18] MEDS: IPRATROPIUM BROMIDE/ALBUTEROL respimat INH INH SCH ×4 (08:52→20:52)
[2016-12-18] MEDS: GUAIFENESIN 600 MG TABCR PO SCH ×2 (08:52→20:53)
[2016-12-18] MEDS: METFORMIN HCL 850 MG TAB PO SCH ×2 (08:53→17:52)
[2016-12-18] MEDS: CETIRIZINE HCL 10 MG TAB PO SCH (08:53)
[2016-12-18] MEDS: ENOXAPARIN 40 MG/0.4 ML SYR SQ SCH (08:54)
[2016-12-18] MEDS: INSULIN ASPART 100 UNITS/ML 3 ML PEN SC SCH ×4 (10:08→20:53)
--- NOTE | 2016-12-18 14:12 | Hospitalist Progress Note ---
Hospitalist Progress Note Date of Service December 18, 2016. (Zora Hoffman ., ALLIC) Subjective Pt evaluation today including: conversation w/ patient, physical exam, chart review, lab review, review of inpatient medication list Pain: None PO Intake: Tolerating PO diet Voiding: no voiding problems Patient reports feeling well. She states that she does have some PAGAN, but her breathing has been okay at rest. She was ambulating in the hallways without much difficulty. She does reports some lightheadedness when changing positions. She reports a cough but states that it is no longer productive. The patient denies fevers, chills, sweats, chest pain, palpitations, claudication, wheezing, shortness of breath at rest, nausea, vomiting, abdominal pain, dysuria, hematuria, urinary retention, paralysis, weakness, numbness and tingling. Additional Comments: See HPI for pertinent positives and negatives. All other systems reviewed and negative. (Zora Hoffman ., PA-C) Objective Vital Signs Date Time Temp Pulse Resp B/P Pulse Ox O2 Delivery O2 Flow Rate FiO2 12/18/16 08:30 93 Room Air 12/18/16 07:46 36.5 76 16 144/81 93 Room Air 12/18/16 00:00 Room Air 12/17/16 23:58 36.4 87 18 132/72 94 Room Air 12/17/16 20:00 Room Air 12/17/16 16:10 36.6 85 18 120/73 95 Room Air 113/74 117/75 12/17/16 16:00 Room Air (Zora Hoffman ., ISHAN-C) Physical Exam Notes: General appearance: Well-developed, well-nourished, no apparent distress Head: Normocephalic, atraumatic Eyes: Normal inspection, PERRL, EOMI ENT: Normal ENT inspection, hearing grossly normal, pharynx normal Neck: Supple, no JVD, trachea midline Respiratory/Chest: +decreased lung sounds. Lungs clear to auscultation, normal breath sounds, no respiratory distress Cardiovascular: Regular rate & rhythm, no gallop, no murmur Abdomen/GI: Normal bowel sounds, non-tender, soft Extremities/Musculoskeletal: Normal inspection, no calf tenderness, no pedal edema Neurological/Psych: Alert, normal mood/affect, oriented x 3 Skin: Normal color, warm/dry, no rash (Zora Hoffman ., ALLIC) Laboratory Results Last 24 Hours Test 12/17/16 16:48 12/17/16 20:10 12/18/16 05:20 12/18/16 07:04 Bedside Glucose 139 mg/dl 177 mg/dl White Blood Count 20.01 K/uL Red Blood Count 4.31 M/uL Hemoglobin 11.5 g/dL Hematocrit 34.7 % Mean Corpuscular Volume 80.5 fL Mean Corpuscular Hemoglobin 26.7 pg Mean Corpuscular Hemoglobin Concent 33.1 g/dl Platelet Count 514 K/uL Mean Platelet Volume 8.4 fL Neutrophils (%) (Auto) 70.3 % Lymphocytes (%) (Auto) 23.6 % Monocytes (%) (Auto) 4.8 % Eosinophils (%) (Auto) 0.7 % Basophils (%) (Auto) 0.0 % Neutrophils # (Auto) 14.03 K/uL Lymphocytes # (Auto) 4.73 K/uL Monocytes # (Auto) 0.97 K/uL Eosinophils # (Auto) 0.14 K/uL Basophils # (Auto) 0.01 K/uL RDW Standard Deviation 46.0 fL RDW Coefficient of Variation 15.6 % Immature Granulocyte % (Auto) 0.6 % Immature Granulocyte # (Auto) 0.13 K/uL Sodium Level 136 mmol/L Potassium Level mmol/L 3.9 mmol/L Chloride Level 102 mmol/L Carbon Dioxide Level 26 mmol/L Anion Gap 8.0 mmol/L Blood Urea Nitrogen 18 mg/dl Creatinine 0.71 mg/dl Est Creatinine Clear Calc Drug Dose 78.6 ml/min Estimated GFR () 97.3 Estimated GFR (Non- 83.9 BUN/Creatinine Ratio 26.0 Random Glucose 115 mg/dl Calcium Level 9.0 mg/dl Magnesium Level mg/dl Test 12/18/16 07:51 12/18/16 11:32 Bedside Glucose 105 mg/dl 113 mg/dl (Zora Hoffman ., ALLIC) Assessment and Plan 76-year-old female admitted on 12/10/2016 with community-acquired pneumonia at the right lung base after presenting with SOB, productive cough and malaise. Community Acquired PNA RLL--stable -Admit to med/surg -Tachycardia and fever resolved -Given Levaquin IV x 1 dose in ED. Switched to azithromycin and Rocephin on admission, however pt did not tolerate azithromycin. Changed back to Levaquin. Received 7 days abx -Repeat CXR still shows RLL PNA -Continue Prednisone taper. Prednisone 30 mg PO qd today. -Duonebs QIDR and q2h prn SOB/wheezing -Incentive spirometry -BCx negative x 2 Diabetes mellitus type 2--Last hgbA1c checked 12/11/16 was 6.8 -Hyperglycemia secondary to steroid use now resolving. Pt received only 4 units Novolog today so far, Lantus d/c'd. Will discharge home on oral agents -Insulin sliding scale -Check BSGs q ac and qhs H/o CVA -Continue Aggrenox Chronic Right shoulder pain -Continue Tylenol prn -Pt will continue with outpatient physical therapy Anxiety -Continue Celexa 40 mg PO qd GERD -Continue Protonix while inpt-- resume Prilosec at discharge DVT prophylaxis -Enoxaparin 40 mg SC q24h Code Status -Level I, FULL RESUSCITATION STATUS Dispo -Pt from home, lives alone -PT states pt can return home and will continue outpatient PT -Anticipate d/c tomorrow. Pt states still too weak/not ready today and is very cautious because she lives alone (Zora Hoffman ., PA-C) I agree with PA assessment and plan and have seen and examined pt myself Resting comfortably in bed Stated occasional dizziness and fatigue No sob or hypoxia VSS Cont pred taper Likely DC in next 24 hrs (Raheel Perez D.O.)
--- NOTE | 2016-12-18 14:34 | Pharmacy Progress Note ---
Glycemic Control: Progress Nt Date of Service December 18, 2016. Scope Glycemic Pharmacist consulted for glycemic control and to write orders per [facility] inpatient glycemic control protocol. Objective Accuchecks BSG (last 24hrs): Test 12/17/16 16:48 12/17/16 20:10 12/18/16 05:20 12/18/16 07:51 Bedside Glucose 139 mg/dl (70-90) 177 mg/dl (70-90) 105 mg/dl (70-90) Random Glucose 115 mg/dl (70-99) Test 12/18/16 11:32 Bedside Glucose 113 mg/dl (70-90) Laboratory Data (last 24hrs) Test 12/18/16 05:20 12/18/16 07:04 Anion Gap 8.0 mmol/L BUN/Creatinine Ratio 26.0 Blood Urea Nitrogen 18 mg/dl Creatinine 0.71 mg/dl Potassium Level mmol/L 3.9 mmol/L Sodium Level 136 mmol/L White Blood Count 20.01 K/uL Red Blood Count 4.31 M/uL Hemoglobin 11.5 g/dL Hematocrit 34.7 % Mean Corpuscular Volume 80.5 fL Mean Corpuscular Hemoglobin 26.7 pg Mean Corpuscular Hemoglobin Concent 33.1 g/dl Platelet Count 514 K/uL Mean Platelet Volume 8.4 fL Neutrophils (%) (Auto) 70.3 % Lymphocytes (%) (Auto) 23.6 % Monocytes (%) (Auto) 4.8 % Eosinophils (%) (Auto) 0.7 % Basophils (%) (Auto) 0.0 % Neutrophils # (Auto) 14.03 K/uL Lymphocytes # (Auto) 4.73 K/uL Monocytes # (Auto) 0.97 K/uL Eosinophils # (Auto) 0.14 K/uL Basophils # (Auto) 0.01 K/uL HbA1c: Test 12/11/16 05:40 Hemoglobin A1c 6.8 % (4.5-5.6) H Recent Pertinent Medications Outpatient Anti-diabetic Regimen: * Metformin 850 mg po BIDM * A1c = 6.8 % 12/11/16 The patient is currently receiving: * Basal insulin with LANTUS BID based on BSG * 0 units for BSG < 120 mg/dL * 6 units for BSG 120-179 mg/dL * 12 units for BSG 180 mg/dL or above * Correctional Insulin with NOVOLOG per scale ACHS or Q6hrs while NPO - add check at 0200 * Goal Range: Low 140 mg/dL - High 180 mg/dL * Correction Factor: 25 mg/dL/unit * Nutritional / Prandial insulin per carb ratio of 1 unit per 9 grams CHO consumed * Oral Agents: metformin 850 mg po BIDM Risk Factors for Insulin Resistance: * Steroids: Prednisone 30 mg podaily * Infection: Completed course of antibiotics for CAP * Diet: T2DM Assessment & Plan ASSESSMENT: * ADA & AACE recommend a goal blood sugar range 140-180 mg/dl for the majority of critically ill & non-critically ill patients. However, more stringent targets may be selected in individual cases. 12/16/16 * 76 yo F with steroid-induced hyperglycemia * Will add basal insulin x1 at higher dose now, then ongoing BID based on BSG * Patient received a significant amount of insulin at lunch today, similar to total daily dose yesterday (30 units total). * Will keep goal range high * Will only slightly tighten correction factor and carb ratio for now * Will add BSG check overnight 12/17/16 * BSG's significantly improved, ranging 122-242 mg/dL over the last 24 hours * Steroids tapering today, equating to eliminating the PM dose of prednisone. BSG's overnight may therefore be more sensitive to basal insulin on board. Will decrease Lantus slightly. * OK to continue Novolog as ordered 12/18/16 * BSG's ranging 105-177 mg/dL over the last 24 hours * Plan to discharge home without insulin. Will therefore discontinue Lantus today. Of note, patient received 6 units 12/17 PM which will still be effective throughout today * OK to loosen correction factor and carb ratio as steroids tapered yesterday and BSG's today good but on the lower end PLAN FOR INPATIENT GLYCEMIC CONTROL: * Continue metformin 850 mg po BIDM * Discontinue basal insulin / LANTUS * Correctional Insulin with NOVOLOG per scale ACHS or Q6hrs while NPO * Goal Range: Low 140 mg/dL - High 180 mg/dL * Loosen Correction Factor: 30 mg/dL/unit * Loosen Nutritional / Prandial insulin per carb ratio of 1 unit per 10 grams CHO consumed Discharge Considerations Assessment * Discharge likely tomorrow. Patient feels too weak to go home today * Patient to be sent home on prednisone taper * Not on insulin at home, does not check BSG's per MD * Patient may be OK at home without insulin. However, should check BSG at least once daily, preferably before bed as this may be her highest BSG of the day as elevations caused by steroids are mainly post-prandial. Therefore AM fasting BSG not likely indicative of overall glycemic status. * Goal for short-term home management while on steroid taper is to prevent severe complications like DKA/HHS. Tight control while on a temporary steroid taper is not reasonable (or necessary) for her. * Will continue to monitor as inpatient to ensure that no insulin provided at home will be safe for the patient Recommendation * Continue metformin 850 mg by mouth twice daily * Check blood sugar a minimum of once daily, preferably before dinner or at bedtime. Call primary care provider if greater than 350 mg/dL * Minimize consumption of large amounts of carbohydrates while on prednisone * Please note that the plan above was derived based on current level of insulin resistance and hospital stress. These recommendations are appropriate for inpatient admission only. Plan of care upon discharge will need to be reassessed to avoid potential outpatient hypo/hyperglycemia. Thank you.
[2016-12-18 15:26] VITALS: BP 128/71; PULSE 95; TEMP 36.9; O2SAT 91
[2016-12-18] MEDS: PANTOprazole SOD 40 MG TAB PO SCH (20:54)
[2016-12-18] MEDS: ZOLPIDEM TARTRATE 5 MG TAB PO PRN (23:03)
[2016-12-18 23:20] VITALS: BP 133/78; PULSE 82; TEMP 36.5; O2SAT 93
[2016-12-19 07:24] LABS: HEMATOCRIT 35.9 % (37-47); MEAN CELL VOLUME 79.4 fL (80-100); MEAN CORPUSCULAR HEMOGLOBIN 25.2 pg (25-34); MEAN CORPUSCULAR HGB CONC 31.8 g/dl (32-36); PLATELET COUNT 503 K/uL (130-400); RED BLOOD COUNT 4.52 M/uL (4.2-5.4); WHITE BLOOD COUNT 15.84 K/uL (4.8-10.8)
[2016-12-19 07:43] VITALS: BP 162/96; PULSE 80; TEMP 36.6; O2SAT 96
[2016-12-19 08:00] LABS: BASO % 0.1 %; BASO ABS # 0.01 K/uL (0-0.2); COMPLETE YES; EOS % 1.1 %; IG% 0.6 %; LYMPH % 37.2 %; MONO % 4.5 %; NEUT % 56.5 %
[2016-12-19] MEDS: ENOXAPARIN 40 MG/0.4 ML SYR SQ SCH (08:00)
[2016-12-19 08:06] LABS: BUN/CREATININE RATIO 23.6 (10-20); CALCIUM 8.7 mg/dl (8.5-10.1); CREATININE 0.68 mg/dl (0.60-1.20); POTASSIUM 3.8 mmol/L (3.5-5.1)
[2016-12-19] MEDS: IPRATROPIUM BROMIDE/ALBUTEROL respimat INH INH SCH ×2 (08:26→12:33)
[2016-12-19] MEDS: METFORMIN HCL 850 MG TAB PO SCH (08:26)
[2016-12-19] MEDS: CITALOPRAM 40 MG TAB PO SCH (08:26)
[2016-12-19] MEDS: DIPYRIDAMOLE/ASPIRIN CAP PO SCH (08:26)
[2016-12-19] MEDS: GUAIFENESIN 600 MG TABCR PO SCH (08:26)
[2016-12-19] MEDS: CETIRIZINE HCL 10 MG TAB PO SCH (08:26)
[2016-12-19] MEDS: INSULIN ASPART 100 UNITS/ML 3 ML PEN SC SCH ×2 (09:03→12:32)
[2016-12-19] MEDS ORDERED: PRED10TA PO (09:37)
--- NOTE | 2016-12-19 09:51 | Discharge Instructions ---
Discharge Instructions Date of Service December 19, 2016. Admission Reason for Admission: Community Acquired Pneumonia Discharge Discharge Diagnosis / Problem: Community Acquired Pneumonia Discharge Goals Goal(s): Decrease discomfort, Improve function, Diagnostic testing, Therapeutic intervention Activity Recommendations Activity Limitations: resume your previous activity (as tolerated) . Instructions / Follow-Up Instructions / Follow-Up You were admitted to the hospital after presenting with shortness of breath, productive cough, and malaise. You were found to have a right lower lobe pneumonia. You were treated with antibiotics, steroids and breathing treatments. You completed your antibiotic course while in the hospital and are now medically stable to return home. You will continue a Prednisone (steroid) taper for a few days following discharge as described below. Medications: *You may take Zyrtec 10 mg by mouth daily *You have been given a prescription for an ipratropium/albuterol inhaler called Combivent, which you received while inpatient. You may use 4 times a day. *Please continue your Prednisone taper as follows: 20 mg (2 tablets) by mouth daily for 2 days, with first dose starting 5/3, then 10 mg (1 tablet) by mouth daily for 2 days, then STOP *Continue your other home medications as prescribed. Resume your metformin as prescribed. Follow up: *Please follow up with your primary care provider, Dr. Chavo Jung, within 1 week following discharge regarding your hospital stay and changes to your medications. Please seek medical attention if you experience fevers, chills, sweats, chest pain, shortness of breath, nausea, vomiting, lightheadedness, loss of consciousness, numbness or tingling. You may resume your outpatient physical therapy for your shoulder. Current Hospital Diet Patient's current hospital diet: Diabetes Type 2 Diet Discharge Diet Recommended Diet: Diabetes Type 2 Diet Pending Studies Studies pending at discharge: no Laboratory Results Hemoglobin A1c Test 12/11/16 05:40 Range/Units Estimated Average Glucose 148 mg/dl Hemoglobin A1c 6.8 H 4.5-5.6 % Medical Emergencies . Who to Call and When: Medical Emergencies: If at any time you feel your situation is an emergency, please call 911 immediately. . Non-Emergent Contact Non-Emergency issues call your: Primary Care Provider Call Non-Emergent contact if: you have a fever, you have any medication questions . Past History Medical & Surgical History: (1) Community acquired pneumonia . "Provider Documentation" section prepared by Zora Hoffman. . VTE Core Measure Inpt VTE Proph given/why not?: Enoxaparin (Lovenox)SQ, SCD's
--- NOTE | 2016-12-19 12:35 | Discharge Summary ---
Discharge Summary Date of Service December 19, 2016. (Zora Hoffman .FRANCISCO) Discharge Summary Admission Date: Dec 10, 2016 at 21:01 Discharge Date: December 19, 2016 Discharge Disposition: Home Principal Diagnosis: Community acquired pneumonia (Zora Hoffman PA-C) Medication Reconciliation New Medications: Ipratropium-Albuterol (Combivent Respimat) 1 Aer Aer 1 PUFFS INH QID, #1 INH Prednisone (Prednisone) 10 Mg Tab 10 MG PO UD for 4 Days, #6 TAB Take 2 tablets by mouth daily for 2 days, then 1 tablet by mouth daily for 2 days, then stop. Cetirizine HCl (All Day Allergy) 10 Mg Tab 10 MG PO QAM for 7 Days, #7 TAB Continued Medications: Acetaminophen (Tylenol) 500 Mg Tab 500 MG PO Q6H PRN for Fever, TAB Ascorbic Acid (Vitamin C) 500 Mg Cap 500 MG PO BID Calcium Phosphate-Cholecalcife (Caltrate Gummy Bites) 1 Chw Chw 1 TAB PO DAILY Cholecalciferol (Vitamin D) 1,000 Unit Tab 1000 UNITS PO QAM Citalopram (Citalopram Hydrobromide) 40 Mg Tab 40 MG PO QAM Cyanocobalamin (Vitamin B-12) Unknown Strength Tab Unknown Dose PO EVERY 3RD DAY, TAB Dipyridamole/Aspirin (Aggrenox 25-200 mg) 1 Cap Cap 1 CAP PO BID for 90 Days, #180 CAP 3 Refills Magnesium Oxide (Magnesium) 250 Mg Tab 250 MG PO BID Metformin Hcl (Glucophage) 850 Mg Tab 850 MG PO BIDM, TAB Multivitamin (Multivitamin) Tab 1 TAB PO QAM, TAB Omeprazole (Prilosec) 20 Mg Cap 20 MG PO HS, CAP Triamcinolone Acetonide (Nasal (Nasacort Allergy 24Hr) 55 Mcg/Act Spr 1 SPRAY KADY QAM Referrals At Discharge Follow up Referrals: Family Practice Referral - Within 1 Week with Chavo Jung M.D. Discharge Exam Patient reports feeling fatigued but otherwise well. She reports a nonproductive cough and some dyspnea on exertion but states that she as able to ambulate in the hallway a few times yesterday without much difficulty. She denies lightheadedness today. The patient denies fevers, chills, sweats, chest pain, palpitations, claudication, wheezing, shortness of breath at rest, nausea , vomiting, abdominal pain, dysuria, hematuria, urinary retention, paralysis, weakness, numbness and tingling. Review of Systems: Constitutional: + fatigue, No chills, No fever, No sweats Eyes: No diplopia, No eye pain, No worsening of vision ENT: No hearing loss, No sore throat, No trouble swallowing Respiratory: + cough, + dyspnea on exertion, No dyspnea at rest, No sputum, No wheezing Cardiovascular: No chest pain, No claudication, No palpitations Abdomen: No nausea, No pain, No vomiting Musculoskeletal: No calf pain, No joint pain, No muscle pain Genitourinary - Female: No dysuria, No hematuria, No urinary retention Neurologic: No numbness/tingling, No paralysis, No weakness Integumentary: No color change, No itch, No rash (Zora Hoffman ., PAJovanaC) Hospital Course 76-year-old female admitted on 12/10/2016 with community-acquired pneumonia at the right lung base after presenting with SOB, productive cough and malaise. Community Acquired PNA RLL--stable -Admit to med/surg -Tachycardia and fever resolved -Given Levaquin IV x 1 dose in ED. Switched to azithromycin and Rocephin on admission, however pt did not tolerate azithromycin. Changed back to Levaquin. Received 7 days abx -Repeat CXR still shows RLL PNA -Continue Prednisone taper on discharge: 20 mg PO qd x 2 days, then 10 mg PO qd x 2 days, then stop -Duonebs QIDR and q2h prn SOB/wheezing -Discharged with Combivent inhaler and Zyrtec -Incentive spirometry -BCx negative x 2 Diabetes mellitus type 2--Last hgbA1c checked 12/11/16 was 6.8 -Hyperglycemia secondary to steroid use now resolving. BSGs much better controlled. Resume metformin on discharge and f/u with PCP -Insulin sliding scale -Check BSGs q ac and qhs H/o CVA -Continue Aggrenox Chronic Right shoulder pain -Continue Tylenol prn -Pt will continue with outpatient physical therapy Anxiety -Continue Celexa 40 mg PO qd GERD -Continue Protonix while inpt-- resume Prilosec at discharge DVT prophylaxis -Enoxaparin 40 mg SC q24h Code Status -Level I, FULL RESUSCITATION STATUS Dispo -Pt from home, lives alone -PT states pt can return home and will continue outpatient PT Total Time Spent: Greater than 30 minutes This includes examination of the patient, discharge planning, medication reconciliation, and communication with other providers. (Zora Hoffman ., PA-C) I agree with PA assessment and plan and have seen and examined pt myself Resting comfortably in bed VSS Labs reviewed Lung Dec bs b/l, no w/r/r Finished 7 day course of levaquin for CAP Stable for discharge home on pred taper No O2 needed on discharge (Raheel Perez, D.OParveen) Discharge Instructions Please refer to the electronic Patient Visit Report (Discharge Instructions) for additional information. (Zora Hoffman ., PA-C) Additional Copies To Chavo Jung M.D.
== END 2016-12-19 16:40 | disposition home or self-care (01) | DRG 195 ==
LOC: ENRESERVTM → ENRESERVDT → C.EDB 17:59 → C.4E 21:01
PROVIDERS: ADMIT Student in an Organized Health Care Education/Training Program; ATTEND Hospitalist
DX: J18.9 Pneumonia, unspecified organism (principal); R00.0 Tachycardia, unspecified; E11.65 Type 2 diabetes mellitus with hyperglycemia; T38.0X5A Adverse effect of glucocorticoids and synthetic analogues, initial encounter; Y92.230 Patient room in hospital as the place of occurrence of the external cause; M25.511 Pain in right shoulder; F41.9 Anxiety disorder, unspecified; K21.9 Gastro-esophageal reflux disease without esophagitis; M81.0 Age-related osteoporosis without current pathological fracture; Z87.891 Personal history of nicotine dependence; Z86.73 Personal history of transient ischemic attack (TIA), and cerebral infarction without residual deficits; Z79.02 Long term (current) use of antithrombotics/antiplatelets; Z79.84 Long term (current) use of oral hypoglycemic drugs; Z79.899 Other long term (current) drug therapy; Z79.51 Long term (current) use of inhaled steroids

== ENCOUNTER → 2017-05-07 | Outpatient (CLI) | payer OTHER, MEDICARE ==
[~2017-05-07] MED LIST changes: +CALC1CHW32 PO; -CALCTAB5 PO; -CLX20 PO; +CLX40 PO; -IBUP-1050 PO; +IPRA1AER2 INH; -OXYC-57 PO; -TRIA1SPR2 NAE; +TRIA1SPR4 NAE; +ZYR10 PO
--- NOTE | 2017-05-07 14:51 | DIAGNOSTIC IMAGING REPORT ---
CHEST 2 VIEWS ROUTINE CLINICAL HISTORY: SHORTNESS OF BREATH dyspnea COMPARISON STUDY: 12/12/2016 FINDINGS: Components of emphysematous change persists. Several calcified granulomas throughout both hemithoraces. Small fixed hiatal hernia. No focal infiltrate. IMPRESSION: Emphysematous change. Small fixed hiatal hernia. No acute process. The above report was generated using voice recognition software. It may contain grammatical, syntax or spelling errors. Electronically signed by: Braydon Garcia M.D. 05/07/2017 2:49 PM Dictated Date/Time: 05/07/2017 2:49 PM
== END | disposition home or self-care (01) ==
LOC: C.RAD 14:12
PROVIDERS: ATTEND Family Medicine
DX: R06.02 Shortness of breath (principal); Z87.01 Personal history of pneumonia (recurrent); J43.9 Emphysema, unspecified; K44.9 Diaphragmatic hernia without obstruction or gangrene

== ENCOUNTER → 2017-06-11 | Outpatient (CLI) | payer OTHER, MEDICARE | END | disposition home or self-care (01) | LOC: C.RDSM 08:44 | PROVIDERS: ATTEND Physical Medicine & Rehabilitation Sports Medicine | DX: Z98.890 Other specified postprocedural states (principal) ==

== ENCOUNTER 2023-08-08 07:12 | Observation (INO) ==
--- NOTE | 2023-07-26 08:39 | Anesthesiology Consultation ---
Date of Service July 26, 2023 Assessment & Plan (1) Encounter for pre-operative examination: - Check BSG AM DOS - Infectious disease screening: Per assessment on 07/25/23: No known infectious disease contacts or current infectious disease symptoms. No noted recent Covid positive test. - Outpatient joint assessment: Pt currently scheduled for inpatient pathway. If surgeon requests review for outpatient joint pathway, patient is not recommended candidate for outpatient joint program from anesthesia standpoint. - Pulmonary visit (11/07/22 [place]): "81-year-old female presenting to pulmonary clinic for evaluation of dyspnea on exertion which has been in existence since 2020. Her symptoms initially improved greatly after correcting her underlying anemia state. Unfortunately, her symptoms have plateaued with persistent dyspnea on exertion which prompted her visit to pulmonary today.. Dyspnea on exertion.. Likely multifactorial in this patient. She has undergone extensive evaluation prior to be evaluated by pulmonary. This has included a CTA, PFTs, exercise stress echocardiogram, and laboratory studies. To this point, none of the evaluations have yielded definitive diagnosis of the patient's shortness of breath. Thankfully, her imaging studies of the lungs have been otherwise unremarkable. Her associated PFTs are otherwise normal. 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 Additionally, the patient is noted to have a large hiatal hernia, while this does not demonstrate any restrictive lung pattern on her pulmonary function studies, this certainly could cause degree of cardiac compression which theoretically could be associated with some shortness of breath symptoms.. Would include increasing activity level as tolerated. We discussed achieving 20 minutes of exercise to focused on elevated heart rate 4-5 times per week to help with endurance. Weight loss would certainly benefit the patient as well. Otherwise, the patient can continue to follow with her primary service. We would be happy to see the patient back in follow-up if her symptoms were to change despite treatment plan outlined above." > Patient states PAGAN is stable/unchanged- she will be seeing PCP for preop evaluation 07/25/23* - Neurology visit (06/15/23 [place]): "At this point in time, I will maintain the patient on her current medication regimen. She may increase activity as tolerated. She is to continue to follow with all current providers and their recommendations as advised. Dr. Ontiveros will follow up with her in 6-8 months, and sooner if needed." - PCP visit (07/25/23): "Probability of perioperative myocardial infarction or cardiac arrest 2%. Advise VTE prophylaxis as per Ortho.. She is aware cardiovascular risk associated with anesthesia surgery etc.. She does have SOB which is most likely due to deconditioning and/or hiatal hernia. She has undergone cardiac testing and PFTs and last several years that was negative. May proceed with surgery." Chart Review Chart Review: Acceptable Risk for Surgery and Patient seen in Pre Admission Testing Teaching & Discussion Pre-Anesthesia Teaching/Discussion Notes: Instructed NPO after midnight before surgery,except medications with 15 cc of water. Medication instructions provided according to the PAT guidelines. History Surgery Operation Date: 08/08/23 07:00 Proposed Procedures p Left Total Knee Arthroplasty - Ryan Washington MD Height/Weight Height: 5 ft 6.5 in Weight: 90 kg Allergies Allergy/AdvReac Type Severity Reaction Status Date / Time silicone Allergy Unknown contact Verified 07/10/23 12:46 dermatitis Medications Home Medications Medication Instructions Recorded Confirmed Last Taken magnesium oxide 250 mg PO HS 10/10/18 07/10/23 11/06/21 diphenoxylate-atropine 2.5 1 tab PO UD PRN Diarrhea 10/22/19 07/10/23 Unknown mg-0.025 mg tablet (Lomotil) fexofenadine 180 mg tablet 180 mg PO HS 08/08/21 07/10/23 11/06/21 (Allergy Relief (fexofenadine)) omeprazole 20 mg capsule,delayed 40 mg PO UD PRN Acid Reflux 08/08/21 07/10/23 U nknown release aspirin 81 mg tablet,delayed 81 mg PO QPM 10/20/21 07/10/23 11/06/21 release cranberry 400 mg capsule 400 mg PO UD PRN UTI 10/20/21 07/10/23 Unknown diphenhydramine HCl 25 mg capsule 25 mg PO UD PRN ITCHINESS 10/20/21 07/10/23 Unknown (Benadryl) ferrous sulfate 140 mg (45 mg 140 mg PO HS 10/20/21 07/10/23 11/06/21 iron) tablet,extended release (Slow Release Iron) calcium 500 mg tablet 500 mg PO QAM 04/18/22 07/10/23 Unknown exemestane 25 mg tablet 25 mg PO QPM 04/18/22 07/10/23 Unknown multivitamin with calcium and 1 tab PO BID 04/18/22 07/10/23 Unknown minerals-folic acid 200 mcg tablet (One-A-Day Proactive 65 Plus) ascorbic acid (vitamin C) 500 mg 1,000 mg PO BID 05/26/22 07/10/23 Unknown capsule metformin 500 mg tablet 500 mg PO BID 05/26/22 07/10/23 Unknown cholecalciferol (vitamin D3) 25 2,000 unit PO QPM 08/28/22 07/10/23 Unknown mcg (1,000 unit) capsule galantamine 16 mg 24 hr 16 mg PO QAM #90 caps 12/12/22 07/10/23 Unknown capsule,extended release citalopram 40 mg tablet 40 mg PO HS #30 tabs 12/18/22 07/10/23 Unknown memantine 10 mg tablet (Namenda) 10 mg PO BID #180 tabs 06/20/23 07/10/23 Unknown Past Medical History Medical History Diabetes NIDDM Poor historian Vascular dementia [place] neurology visit 06/15/23 Nephrolithiasis Noted per records Breast cancer Fatty liver TIA (transient ischemic attack) Possible remote TIA per neuro, treated as hx TIA "given that she has several risk factors" per [place] neuro visit 10/2019 Osteoarthritis Hiatal hernia Iron deficiency Hx Depression Exercise / Class Metabolic Activity III < 4 Walking/Shop/Light housework Past Family History Family History Father Diabetes Grandfather (Maternal) Diabetes Grandmother (Maternal) Diabetes Mother Hypertension Skin cancer (melanoma) Past Surgical History Surgical History History of left cataract surgery History of right cataract surgery History of surgery "Reduction of both ovaries" History of shoulder surgery Right History of lumpectomy Right breast (2013) H/O oophorectomy S/P ovarian cystectomy S/P section Hx of breast surgery Past Anesthesia History No Hx of Anesthesia Complications and No Family Hx of Anesthesia Complications History of PONV No Hx of PONV and Hx of Motion Sickness Social History Smoking Status: Former smoker Do You Dip or Chew Tobacco: No Smoking End Date: Quit 23 years ago Hx Alcohol Use: Yes (Rare) Hx Substance Use: No substance use type: does not use Review of Systems Chronic rhinorrhea + occasional cough r/t seasonal allergies- unchanged/at baseline. Patient denies chest pain, shortness of breath, fever, chills, wheezing, palpitations. Physical Exam Vital Signs VITALS BP 118/74 P 89 TEMP 97.9 SP02 96%RA RESP 18 PHYSICAL Full cervical extension range of motion. Full TMJ range of motion. TMD 3 finger breaths Mallampati Score 2 Dentition: missing sides/molars Lungs: clear throughout to auscultation Cardiac: regular rate and rhythm, no murmurs noted Spine: normal Carotid arteries: negative bruit Extremities: no LE edema Lab Results Anesthesia Preop Results Results Anesthesia Widget: WBC 5.72 K/ul (4.8-10.8) 07/25/23 Hgb 14.8 g/dl (12.0-16.0) 07/25/23 Hct 44.3 % (37.0-47.0) 07/25/23 Plt 286 K/uL (130-400) 07/25/23 Na 136 mmol/L (136-145) 07/25/23 K 3.9 mmol/L (3.5-5.1) 07/25/23 Cl 102 mmol/L (98-107) 07/25/23 CO2 23 mmol/L (21-32) 07/25/23 BUN 12 mg/dl (6-23) 07/25/23 Creat 0.85 mg/dl (0.6-1.2) 07/25/23 Glucose Level 235 mg/dl (70-99(Fasting)) H 07/25/23 PT 10.5 Seconds (9.0-12.0) 07/25/23 PTT 29 Seconds (21-31) 07/25/23 INR 1.0 (0.9-1.1) 07/25/23 HA1c 6.9 % (4.5-5.6) H 07/25/23 Urine Color Dark Yellow 07/25/23 Urine Appearance Turbid (Clear) A 07/25/23 Urine pH 5.5 (4.5-7.5) 07/25/23 Urine Specific [place] 1.023 (1.000-1.030) 07/25/23 Urine Protein Negative (Negative) 07/25/23 Urine Glucose (UA) Negative (Negative) 07/25/23 Urine Ketones Trace (Negative) H 07/25/23 Urine Blood Negative (Negative) 07/25/23 Urine Nitrite Negative (Negative) 07/25/23 Urine Bilirubin Negative (Negative) 07/25/23 Urine Urobilinogen Negative (Negative) 07/25/23 Urine Leukocyte Esterase 1+ (Negative) H 07/25/23 Urine WBC (Auto) 1-5 /hpf (0-5) 07/25/23 Urine RBC (Auto) 0-4 /hpf (0-4) 07/25/23 Urine Hyaline Casts (Auto) 1-5 /lpf (0-5) 07/25/23 Urine Epithelial Cells (Auto) >30 /lpf (0-5) H 07/25/23 Urine Bacteria (Auto) Negative (Negative) 07/25/23 Blood Type O Positive 07/25/23 Antibody Screen NEGATIVE 07/25/23 Testing Electrocardiogram Date: 07/25/23 NSR at 81bpm. NS TWA. Stress Test Date: 05/09/21 Type: DSE Negative DSE/stress ECG for ischemia at 95% MPHR. Hyperdynamic LV systolic function on rest echo. EF > 75%. Mild cLVH. Pulmonary Function Test Date: 09/26/22 Normal spirometry lung volumes and diffusion capacity. Flow volume loops are normal. Other Testing Carotid doppler Date: 04/04/2021 IMPRESSION: Atherosclerotic plaque with no sonographic evidence of hemodynamically significant stenosis in the right or left carotid arterial system. Antegrade flow is shown in the vertebral arteries. CXR with ribs x-ray Date: 05/23/23 FINDINGS: No fractures are seen. The chest wall and soft tissues are normal. A port catheter is seen. Calcified aortic knob is seen. A hiatal hernia is seen. The lungs are clear. No evidence of pleural effusion or pneumothorax. IMPRESSION: No evidence of acute fracture or other acute abnormalities in the visualized portions of the chest.
--- NOTE | 2023-08-08 06:29 | History & Physical Bridge Note ---
Date of Service August 08, 2023 History & Physical Bridge Note I have examined the patient, reviewed the History & Physical and in the interval since the performance of the History & Physical I have noted the following changes of clinical significance: no changes noted
[~2023-08-08 07:12] MED LIST changes: -ACET-1256 PO; -AGG PO; -ASCO1CAP3 PO; +BUPIVACAINE 0.5 % 5 MG/1 ML PF 10ML VIAL ONE; -CALC1CHW32 PO; -CHOL100010 PO; -CLX40 PO; -CYAN10005 PO; -IPRA1AER2 INH; +LR 500ML BOLUS, THEN 15ML/HR IV SCH; +LR 60ML/HR IV SCH; -MAGN250T22 PO; -METF850T PO; -MULT-506 PO; -OMEP20CA9 PO; +ROPIVACAINE 0.5% 5 MG/ML 30 ML VIAL ONE; +ROPIVACAINE 0.5% HCL/PF 150 MG, BUPIVACAINE 0.75% MPF 20 ML, EPINEPHrine 0.15 MG, Ketor... INFIL SCH; +TRANEXAMIC ACID 1,000 MG x 1 **For Topical Use Intraop TOP SCH; -TRIA1SPR4 NAE; -ZYR10 PO; +ceFAZolin 2000MG 2,000 MG/15 ML SYR IV SCH
[2023-08-08] MEDS ORDERED: MIDAZOLAM HCL 1 MG/ML 2ML VIAL ONE (07:38)
--- OUTSIDE RECORDS SUMMARY | 2023-08-08 07:46 | External Medical Summary | Continuity of Care Document ---
Author Name Unknown Organization [facility] [address] [facility] 2 Address [address] [facility] [address] [id number] Care Team Providers Care Dealer Sales Manager Name Role Phone Marlin Church Primary Care Physician [phone] [id number] Date(s): 07/26/23 - 07/26/23 [facility] [address] [facility] [address] [id number] Encounter Diagnosis Other seborrheic dermatitis(Discharge Diagnosis) - 07/26/23 Inflamed seborrheic keratosis(Discharge Diagnosis) - 07/26/23 Discharge Disposition: Home or Self Care Attending Physician: MD Hardy Thomas A Referring Physician: MD Hardy Thomas A Allergies, Adverse Reactions, Alerts Substance Reaction Severity Status Allergy Not found in Search 1, 2 Seasonal allergies Active 1SENSITIVE TO TEMPERATURE CHANGES 2Seasonal allergies Assessment and Plan Extracted from: Title:Clinical Document Author:MD Antony, Rosie Francisco Date:07/26/23 OUTPATIENT NOTE Name: JAN BARRETO Patient Number:1 [id number] : 1940 Date of Service: 07/26/2023 Mamadou Barreto returns for reevaluation. She notes a keratotic papule present on the left posterior neck which tends to be irritating. She tends to pick at the lesion and it was treated with cryotherapy patient request with her consent as an inflamed seborrheic keratosis. Side effects were discussed. She notes occasional keratotic papules present in the scalp which may wax and wane in severity. She rarely shampoos relying more on her hairstylist to she sees once a month. She exhibits few keratotic papules present on the scalp however, there is no erythema, pustule formation, inflammation, or scarring. I advised alternation of ketoconazole 1% shampoo with 3% salicylic acid shampoo. Patient is not currently using any fluocinonide or clobetasol solution and does not appear to need any. Review of systems medications allergies as noted on the chart. The patient is in stable health. She will get a knee replacement surgery this month. Her son and xyfmbstb-iw-kis are living in [place], but she has been seeing them less frequently. She feels rather isolated here in [place], but has no plans to move there. Examination reveals pleasant well-nourished white female with type I skin who is alert and oriented x 3 with normal mood and affect. Examination of the head and neck reveals findings noted above. The patient denies lesions elsewhere. She will return in 6 months for reevaluation as per her preference. Immunizations Given and Recorded Vaccine Date Status Refusal Reason influenza virus vaccine, inactivated 04/30/23 Give n influenza virus vaccine, inactivated 05/20/21 Give n influenza virus vaccine, inactivated 05/06/20 Give n influenza virus vaccine, inactivated 06/04/19 Give n influenza virus vaccine, inactivated 06/14/18 Give n influenza virus vaccine, inactivated 06/14/18 Gareth rded influenza virus vaccine, inactivated 07/04/17 Give n influenza virus vaccine, inactivated 06/07/16 Give n influenza virus vaccine, inactivated 08/09/15 Give n influenza virus vaccine, inactivated 06/29/14 Gareth rded SARS-CoV-2 (COVID-19) mRNA-1273 vaccine 1 10/29/20 Recorded SARS-CoV-2 (COVID-19) mRNA-1273 vaccine 2 10/01/20 Recorded pneumococcal 23-valent vaccine 07/04/17 Given pneumococcal 23-valent vaccine 3 06/29/08 Recorded pneumococcal 13-valent vaccine 06/07/16 Given tetanus/diphtheria/pertuss, acel (Tdap) 06/05/12 R ecorded 1Result Comment: 2021-02-01: Historical information-source unspecified 2Result Comment: 2020-10-04: Historical information-source unspecified 3Result Comment: 2020-10-04: Historical information-source unspecified Medications Celeste 24 Hour Allergy Start: 12/26/16 13:43:00, 180 mg =, PO, Daily, PRN: as needed for allergy symptoms Start Date: 12/26/16 Status: Ordered aspirin 81 mg oral delayed release tablet Start: 03/16/20 14:42:00 EDT, 1 tab, PO, bid, Disp# 60 tab, per neurologist, other Start Date: 03/16/20 Status: Ordered Benadryl Start: 06/01/21 16:23:00 EDT Start Date: 06/01/21 Status: Ordered calcium (as carbonate) 500 mg oral tablet, chewable Start: 09/05/17 11:32:00 EST, 2 tab, Calcium gummy daily Start Date: 09/05/17 Status: Ordered citalopram 40 mg oral tablet Start: 05/30/22 18:39:00 EDT, See Instructions, Disp# 90 tab, Refills: 1, TAKE 1 TABLET BY MOUTH EVERY DAY, Pharmacy: [id number] Start Date: 05/30/22 Status: Ordered cranberry Start: 03/07/19 17:56:00 EDT, PRN Start Date: 03/07/19 Status: Ordered exemestane 25 mg oral tablet TAKE 1 TABLET BY MOUTH EVERY DAY Start Date: 04/10/22 Status: Ordered galantamine 8 mg oral capsule, extended release Start: 09/26/22 16:32:00 EST, 2 cap, PO, qAM Start Date: 09/26/22 Status: Ordered magnesium oxide 250 mg oral tablet Start: 10/28/14 12:43:00, 1 tab, PO, bid Start Date: 10/28/14 Status: Ordered memantine 5 mg oral tablet Start: 07/05/22 14:24:00 EST, See Instructions, pt taking 15mg daily, then will increase to 20mg Start Date: 07/05/22 Status: Ordered MetFORMIN (Eqv-Glucophage XR) 500 mg oral tablet, extended release Start: 03/06/23 9:31:00 EDT, See Instructions, Disp# 180 tab, Refills: 2, TAKE 1 TABLET BY MOUTH TWO TIMES DAILY WITH MEALS, Pharmacy: [id number] Start Date: 03/06/23 Status: Ordered multivitamin Start: 10/07/14 13:17:00, 1 tab, PO, Daily Start Date: 10/07/14 Status: Ordered nystatin 100,000 units/g topical cream Start: 06/05/22 16:52:00 EDT, See Instructions, Disp# 30 g, Refills: 4, apply topical bid to effected area, Pharmacy: [id number] Start Date: 06/05/22 Status: Ordered omeprazole 20 mg oral delayed release capsule Start: 01/25/21 11:35:00 EDT, 2 cap, PO, Daily, PRN Start Date: 01/25/21 Status: Ordered Slow Release Iron (as elemental iron) 45 mg oral tablet, extended release Start: 08/17/21 15:15:00 EST, 1 tab, PO, Daily, Disp# 90 tab, OTC, other Start Date: 08/17/21 Status: Ordered Vitamin C Start: 10/28/14 11:41:00, See Instructions, Up to 3000 mg twice a day Start Date: 10/28/14 Status: Ordered Vitamin D3 1000 intl units oral tablet Start: 10/28/14 12:41:00, 1 tab, PO, Daily Start Date: 10/28/14 Status: Ordered Mental Status 07/26/23 Barriers to Learning one year None evide nt Mandatory Health Literacy Documentation Yes Health Literacy Communication Barriers N ever Primary Language Taiwanese Problem List Condition Confirmation Course Effective Dates Status H ealth Status Informant Anemia Confirmed Active Anxiety Confirmed Active Back pain Confirmed Active Agustina onychomycosis Confirmed Active Candidal skin infection Confirmed Active Stroke Confirmed Active Diabetes Confirmed Active Esophageal reflux Confirmed Active Hiatal hernia with GERD Confirmed Active GERD Confirmed Active H/O seasonal allergies Confirmed Active Hx of transient ischemic attack (TIA) Confirmed Active Hiatal hernia Confirmed Active Impaired fasting glucose Confirmed Active Nephrolithiasis Confirmed Active Breast CA Confirmed Active Osteopenia Confirmed Active PVD (peripheral vascular disease) Confirmed Active Bilateral primary osteoarthritis of knee Confirmed Active Seasonal allergies Confirmed Active Fatty liver Confirmed Active Solitary thyroid nodule Confirmed Active Vascular dementia 1 Confirmed Active Weight disorder Confirmed Active 1as per neuro in May 2022, started nemenda Diagnosis Diagnosis Type Effective Dates Health Status Clinical Service Informant Other seborrheic dermatitis Discharge Diagnosis 07/26/23 Inflamed seborrheic keratosis Discharge Diagnosis 07/26/23 Procedures Procedure Date Related Diagnosis Body Site Status Mammogram 1 03/19/23 Completed Chest X-ray 2 12/04/22 Completed X-ray Ribs LT 3 12/04/22 Completed BREAST TOMOSYNTHESIS UNI AND TARGETED LEFT ULTRASOUND 4 07/06/22 Completed Cataract extraction 5 10/24/21 Com pleted Eye examination 6 03/12/20 Complet ed Mammogram 7 09/30/18 Completed Eye examination 8 11/29/16 Complet ed Repair of rotator cuff of shoulder 9 07/04/16 Completed Imaging,CHEST 05/01/16 Completed upper GI endoscopy 01/03/16 Comple minna X-ray 10 02/02/15 Completed x-ray lumbar spine 11 02/02/15 Com pleted X-ray of bone of hip 12 02/02/15 C ompleted Breast biopsy and related procedures Completed section Complete d Cyst, ovarian Completed Laparoscopy with excision of lesion Completed Laparotomy 13 Completed Oophorectomy Completed Oral surgery Completed X-ray 14 Completed 11. 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 2. Persistently decreased hypoechoic mass in the 10:00 left breast currently measuring 2.7 mm, previously measured 3.8 mm, at the site of biopsy-proven DCIS, sonographic finding. 3. Stable mammographic appearance of the right breast, without mammographic evidence of malignancy. 2Peribronchial thickening is seen compatible with infectious/inflammatory airways disease or viral pneumonia. No kait consolidation is seen. 31. Subtle nondisplaced fracture of the anterior left seventh rib, likely acute or subacute. Correlate with point tenderness. 2. No acute displaced rib fracture identified. 4IMPRESSION : ACR BI-RADS CATEGORY 6 : KNOWN BIOPSY PROVEN MALIGNANCY, ULTRASOUND ACR BI-RADS CATEGORY 6 : KNOWN BIOPSY PROVEN MALIGNANCY No new/increasing calcifications or other suspicious findings are seen at the 3 biopsy sites in theleft medial breast which yielded DCIS. The previously biopsied mass in the left 10:00 breast is smaller in size compared to the prebiopsy ultrasound exam, now measuring 2mm, previously measuring 4mm.Again, surgical excision is recommended for biopsy-proven multifocal DCIS. The patient had been verbally notified of the results. She is hesitant to undergo mastectomy, and Idiscussed with her that perhaps she may be able to undergo lumpectomies given that the findings were very small and she should discuss this with her surgeon. 5[facility] eye 6[facility] Impression: 1. 20/30 each other, glaring to 2/250 in the right and 20/100 in the left 2. +3 nuclear sclerosis of her lenses on slit lamp examination 3. PVD's with Kumar rings and healthy pink optic disease. No evidence of reinopathy 7IMPRESSION: ACR BI-RADS CATEGORY 0: INCOMPLETE EVALUATION: NEED ADDITIONAL IMAGINGThe subtle area of architectural distortion in the medial right breast needs additional imaging evaluation. 8Myopia, bilateral Regular astigmatism, bilateral Presbyopia Drusen (degenerative) of macula, bilateral Age-related nuclear cataract, bilateral- referring to Dr. Cheng Gamez for cataract consultation Type 2 DM without complication. 9Right 10Sacroiliac joint Impression: No conventional radiographic evidence of an inflammatory sacroilitis. 11Lumbar spine 5 views Impression: Mild degenerative change. No acute freactures are visualized. No destructive lesions are evident. 12Left hip Conclusion: Suspect mild degenerative change in the left hip. Otherwise negative. 13exploratory 14IMPRESSION: No evidence of acute fracture or other acute abnormality in the visualized portions of the chest. Social History Social History Type Response Tobacco Former smoker, Cigar ettes 1 Smoking Status Never smoked cigaret armani Sex Female 1Quit in November 1999. Smoked 1 ppd. Outpatient Note * MD Antony, Moisés Francisco: PERFORM Event Display: .Outpt Note Authored Date: [id number] OUTPATIENT NOTE Name: JAN BARRETO Patient Number:1 [id number] : 1940 Date of Service: 07/26/2023 _ Jan Barreto returns for reevaluation. She notes a keratotic papule present on the left posterior neck which tends to be irritating. She tends to pick at the lesion and it was treated with cryotherapypatient request with her consent as an inflamed seborrheic keratosis. Side effects were discussed. She notes occasional keratotic papules present in the scalp which may wax and wane in severity. Sherarely shampoos relying more on her hairstylist to she sees once a month. She exhibits few keratotic papules present on the scalp however, there is no erythema, pustule formation, inflammation, or scarring. I advised alternation of ketoconazole 1% shampoo with 3% salicylic acid shampoo. Patient is not currently using any fluocinonide or clobetasol solution and does not appear to need any. Review of systems medications allergies as noted on the chart. The patient is in stable health. Shewill get a knee replacement surgery this month. Her son and kyfixvqr-jf-bjh are living in [place],but she has been seeing them less frequently. She feels rather isolated here in [place], but has no plans to move there. Examination reveals pleasant well-nourished white female with type I skin who is alert and orientedx 3 with normal mood and affect. Examination of the head and neck reveals findings noted above. Thepatient denies lesions elsewhere. She will return in 6 months for reevaluation as per her preference. Electronic Signature on File Electronically Reviewed/Signed by: Moisés Hardy MD Author Signature Dt/Tm:07/26/2023 03:09 PM Department of Dermatology [facility] Patient Care team information Care Team Personnel Name: PAM Church Tara Position: Nurse Pract - Family Med Member Role: Primary Care Provider Address: Address: [address] [place] [address], [place] [address] [place] Care Team Related Persons Name: SREE RILEY Address: home No Address Provided Name: JUAN BARRETO Address: home [address] [place] [address], [phone]
--- OUTSIDE RECORDS SUMMARY | 2023-08-08 07:46 | External Medical Summary | Continuity of Care Document ---
Author Name Unknown Organization [address] Address [address] [place], [place] [id number] Care Team Providers Care Group Social Worker Name Role Phone Marlin Church Primary Care Physician [phone] [facility]counter [id number] Date(s): 07/25/23 - 07/25/[address] [address] [phone] Encounter Diagnosis Pre-op exam(Discharge Diagnosis) - 07/25/23 Discharge Disposition: Home or Self Care Attending Physician: PAM Church Tara Referring Physician: MD Washington Wayne J Allergies, Adverse Reactions, Alerts Substance Reaction Severity Status Allergy Not found in Search 1, 2 Seasonal allergies Active 1SENSITIVE TO TEMPERATURE CHANGES 2Seasonal allergies Assessment and Plan Extracted from: Title:preop Author:PAM Church Tara Date: 1.Pre-op exam Geriatric-Sensitive Perioperative Cardiac Risk Index | GSCRI Estimate risk of perioperative myocardial infarction or cardiac arrest in patients over 65 History of Stroke? Yes ASA Class? Patients with mild systemic disease Surgery Type? Orthopedic Functional Status? Independent Creatinine? =132 mol/L History of Heart Failure? No Diabetes? Yes, not insulin dependent Probability of Perioperative Myocardial Infarction or Cardiac Arrest 2% Previous smoke who quit over 23 yr ago. She drinks etoh rarely. No illicit drug use. Her labs from [facility] today are unremarkable (CBC, CMP, PT/INR). Her hgba1c is 6.9% which is acceptable. Advise VTE prophylaxis as per ortho. [facility] as she lives [facility]. She is aware of cardiovascular risk associated with anethesia surgery etc. She does have Sob which is most likely due to deconditioning and/or hiatal hernia. She has undergone cardiac testing and PFTs in last several years that was negative. May proceed with surgery. time spent reviewing chart, face to face visit, ordersand documentation: 42 min Immunizations Given and Recorded Vaccine Date Status [...] 1 TABLET BY MOUTH EVERY DAY, Pharmacy: [id number] Start Date: 05/30/22 Status: Ordered [...] MOUTH TWO TIMES DAILY WITH MEALS, Pharmacy: [id number] Start Date: 03/06/23 Status: Ordered multivitamin Start: 10/07/14 13:17:00, 1 tab, PO, Daily Start Date: 10/07/14 Status: Ordered nystatin 100,000 units/g topical cream Start: 06/05/22 16:52:00 EDT, See Instructions, Disp# 30 g, Refills: 4, apply topical bid to effected area, Pharmacy: [id number] Start Date: 06/05/22 Status: Ordered [...] Start Date: 10/28/14 Status: Ordered Mental Status 07/25/23 Barriers to Learning one year None evide nt Mandatory Health Literacy Documentation Yes Health Literacy Communication Barriers N ever Primary Language Sami Problem List Condition Confirmation Course Effective Dates [...] Diagnosis Diagnosis Type Effective Dates Health Status Clini beni Service Informant Pre-op exam Discharge Diagnosis 07/25/23 Procedures Procedure Date Related Diagnosis Body Site Status Mammogram 1 03/19/23 Completed Chest X-ray 2 12/04/22 Completed X-ray Ribs LT 3 12/04/22 Completed BREAST TOMOSYNTHESIS UNI AND TARGETED LEFT ULTRASOUND 4 07/06/22 Completed Cataract extraction 5 10/24/21 Com pleted Eye examination 6 03/12/20 Complet ed Mammogram 7 09/30/18 Completed Eye examination 8 11/29/16 [facility] ed Repair of rotator cuff of shoulder [...] discuss this with her surgeon. 5R eye 6[facility] Impression: 1. 20/30 each [...] in the visualized portions of the chest. Vital Signs Most recent to oldest [Reference Range]: 1 Height 168 cm (07/25/23 1:36 PM) Patient Weight 91.8 kg (07/25/23 1:36 PM) Body Mass Index 32.53 kg/m2 (07/25/23 1:36 PM) Heart Rate 80 bpm (07/25/23 1:36 PM) Respiratory Rate 20 br/min (07/25/23 1:36 PM) Blood Pressure 136/60mmHg (07/25/23 1:36 PM) Cuff Pulse Pressure 76 mmHg (07/25/23 1:36 PM) Social History Social History Type Response Tobacco Former smoker, Cigar ettes 1 Smoking Status Never smoked cigaret armani Sex Female 1Quit in November 1999. Smoked 1 ppd. [facility] Outpt Note * PAM Church Tara: PERFORM Event Display: FCM Outpt Note Authored Date: Chief Complaint pre op knee replacement History of Present Illness Having left knee replacement 08/08/[address] Washington She is going to go to [facility] after surgery. No Claudication No Chest pain YesSOB 2 flights of steps No Personal hx of anesthesia complications No Family hx of anesthesia complications No Personal of hx of VTE, bleeding disorder No Family hx of VTE, bleeding disorder No Family hx of sudden cardiac Previous smoker quit 23 years ago. Smoked on and off up toone ppd. Rare etoh use. 1. Do you snore loudly (louder than talking or loud enough to be heard through closed doors)? no 2. Do you often feel tired, fatigued or sleepy during daytime hours? no 3. Has anyone observed you stopping breathing during your sleep? no 4. Do you have or are you being treated for high blood pressure? yes 5. BMI more than 35kg/m2? no 6. Is your age over 50 years old? yes 7. Is your neck circumference greater than 17 if you are a male or 16 if you are a female? no 8. Are you a male?no - High risk of BART yes to three or more items Low risk of BART yes to less than three items Review of Systems Constitutional: No fever, chills, sweats Pulmonary: No dyspnea with exertion, cough, hemoptysis, wheezing, chest pain. + SOB with exertion Cardiovascular: No chest pain, palpitations, syncope, edema, cyanosis, claudication, orthopnea. GI: No nausea, vomiting, diarrhea, melena, hematochezia, change in appetite, abdominal pain, changein bowel habits or stools : No dysuria, frequency, urgency, urinary incontinence, hematuria, nocturia. MORTAR MAN:No change in menses, dysmenorrhea, dyspaerunia, pelvic pain. Musculoskeletal: No joint swelling or pain, muscle pain, back pain Neurologic: No headache, lightheadedness, dizziness, muscle weakness, paresthesias, change in speech. Psychiatric: No depression, anxiety, hallucinations, uma, suicidal/homicidal thoughts, binging, purging Dermatologic: No rash, new/growing/changing skin lesions Endocrine: No weight change, heat or cold intolerance, tremor, insomnia, polyuria, polydypsia, polyphagia, abnormal hair growth, change in nails Physical Exam Vitals & Measurements HR:80(Monitored) RR:20 BP:136/60 SpO2:97% HT:168cm WT:91.800kg(Dosing) WT:91.8kg BMI:32.53 PHQ2 Data(Data Documented on:07/25/2023 13:36) Emotional health assessment NEGATIVE head- normocephalic neck-no lymphadenopathy, masses, or thyromegaly, +carotid pulses, no bruits, trachea midline Pulmonary- chest expansion symmetric, CTA (clear to auscultation), eupnea, no adventitious sounds (rales, crackles, wheezes) CV (cardiovascular)- RRR no m/r/g (systolic ejection murmur, rubs, gallops), good peripheral perfusion extremitiesNo edema or erythema. skin-good turgor w/o lesions, redness, cyanosis, edema nails- no clubbing or deformities w good cap refill Neuro:Alert, Oriented Psy:no homicidal or suicidal ideations. Assessment/Plan 1.Pre-op exam Geriatric-Sensitive Perioperative Cardiac Risk Index | GSCRI Estimate risk of perioperative myocardial infarction or cardiac arrest in patients over 65 History of Stroke? Yes ASA Class? Patients with mild systemic disease Surgery Type? Orthopedic Functional Status? Independent Creatinine? =132 mol/L History of Heart Failure? No Diabetes? Yes, not insulin dependent Probability of Perioperative Myocardial Infarction or Cardiac Arrest 2% Previous smoke who quit over 23 yr ago. She drinks etoh rarely. No illicit drug use. Her labs from [facility] today are unremarkable (CBC, CMP, PT/INR). Her hgba1c is 6.9% which is acceptable. Advise VTE prophylaxis as per ortho. [facility] as she lives [facility]. She is aware of cardiovascular risk associated with anethesia surgery etc. She does have Sob which is most likely due to deconditioning and/or hiatal hernia. She has undergone cardiac testing and PFTs in last several years that was negative. May proceed with surgery. time spent reviewing chart, face to face visit, ordersand documentation: 42 min Problem List/Past Medical History Ongoing Anemia Anxiety Back pain Bilateral primary osteoarthritis of knee Breast CA Agustina onychomycosis Candidal skin infection Diabetes Esophageal reflux Fatty liver GERD H/O seasonal allergies Hiatal hernia Hiatal hernia with GERD Hx of transient ischemic attack (TIA) Impaired fasting glucose Lobular carcinoma in situ Nephrolithiasis Osteopenia PVD (peripheral vascular disease) Sacro-iliac pain Seasonal allergies Solitary thyroid nodule Stroke Vascular dementia Weight disorder Historical Allergic sinusitis Blurred vision Community acquired pneumonia Cough COVID-19 virus vaccine not available Dark stools Dermatitis Diabetes mellitus, controlled Discoloration and thickening of nails both feet Ear congestion Ear pressure Epistaxis Finger pain, left Gastritis Head congestion Hx of cataract Hx of hiatal hernia Hx of seborrhea Iron deficiency Need for shingles vaccine OA (osteoarthritis) of knee Osteoporosis Pill esophagitis Pneumonia Post-nasal drip Right serous otitis media Rotator cuff tear S/P rotator cuff repair Shoulder dislocation Sore throat Stress Torn rotator cuff Viral upper respiratory tract infection Procedure/Surgical History Mammogram (03/19/2023)X-ray Ribs LT (12/04/2022)Chest X-ray (12/04/2022)BREAST TOMOSYNTHESIS UNI AND TARGETED LEFT ULTRASOUND (07/06/2022)Cataract extraction (10/24/2021)Eye examination (03/12/2020)Mammogram (09/30/2018)Eye examination (11/29/2016)Repair of rotator cuff of shoulder (07/04/2016)Imaging,CHEST (05/01/2016)upper GI endoscopy (01/03/2016)x-ray lumbar spine (02/02/2015)X-ray of bone of hip (02/02/2015)X-ray (02/02/2015)Cyst, ovarianCesarean sectionOral surgeryLaparoscopy with excision of lesionLaparotomyBreast biopsy and related proceduresOophorectomyX-ray Medications ascorbic acid(Vitamin C), See Instructions aspirin(aspirin 81 mg oral delayed release tablet), 81 mg= 1 tab, PO, bid calcium carbonate(calcium (as carbonate) 500 mg oral tablet, chewable), 1000 mg= 2 tab cholecalciferol(Vitamin D3 1000 intl units oral tablet), 1000 Int_Unit= 1 tab, PO, Daily citalopram(citalopram 40 mg oral tablet), See Instructions, 1 refills cranberry diphenhydrAMINE(Benadryl) exemestane(exemestane 25 mg oral tablet) ferrous sulfate(Slow Release Iron (as elemental iron) 45 mg oral tablet, extended release), 45 mg= 1 tab, PO, Daily fexofenadine(Celeste 24 Hour Allergy), 180 mg, PO, Daily, PRN galantamine(galantamine 8 mg oral capsule, extended release), 16 mg= 2 cap, PO, qAM magnesium oxide(magnesium oxide 250 mg oral tablet), 250 mg= 1 tab, PO, bid memantine(memantine 5 mg oral tablet), See Instructions metFORMIN(MetFORMIN (Eqv-Glucophage XR) 500 mg oral tablet, extended release), See Instructions multivitamin, 1 tab, PO, Daily nystatin topical(nystatin 100,000 units/g topical cream), See Instructions, 4 refills omeprazole(omeprazole 20 mg oral delayed release capsule), 40 mg= 2 cap, PO, Daily Allergies Allergy Not found in SearchSeasonal allergies Social History Smoking Status Never smoked cigarettes Tobacco - Denies Tobacco Use Use:Former smoker Type:Cigarettes - Comments: Quit in November 1999. Smoked 1 ppd. Family History Diabetes...: Father, MGF and MGM. Hypertension: Mother. Skin cancer: Mother. Health Status Family Member(s) Immunizations Vaccine Date Status influenza virus vaccine, inactivated 04/30/2023 Given influenza virus vaccine, inactivated 05/20/2021 Given SARS-CoV-2 (COVID-19) mRNA-1273 vaccine 10/29/2020 Recorded Comments : 2021-02-01: Historical information-source unspecified SARS-CoV-2 (COVID-19) mRNA-1273 vaccine 10/01/2020 Recorded Comments : 2020-10-04: Historical information-source unspecified influenza virus vaccine, inactivated 05/06/2020 Given influenza virus vaccine, inactivated 06/04/2019 Given influenza virus vaccine, inactivated 06/14/2018 Given influenza virus vaccine, inactivated 06/14/2018 Recorded pneumococcal 23-valent vaccine 07/04/2017 Given influenza virus vaccine, inactivated 07/04/2017 Given pneumococcal 13-valent vaccine 06/07/2016 Given influenza virus vaccine, inactivated 06/07/2016 Given influenza virus vaccine, inactivated 08/09/2015 Given influenza virus vaccine, inactivated 06/29/2014 Recorded tetanus/diphtheria/pertuss, acel (Tdap) 06/05/2012 Recorded pneumococcal 23-valent vaccine 06/29/2008 Recorded Comments : 2020-10-04: Historical information-source unspecified Recommendations Health Maintenance Pending(in the next year) Due Adult COVID-19 Vaccination due07/25/23Unknown Frequency Adult Tdap/Td Vaccine due07/25/23Unknown Frequency Diabetes Nephropathy Management due07/25/23Unknown Frequency Falls Plan of Care due07/25/23Unknown Frequency Medicare Annual Wellness Visit due07/25/23and every 1year Shingles Vaccine due07/25/23One-time only Due In Future Diabetic Eye Exam not due until10/28/23and every 731day Diabetes Management A1c not due until02/15/24and every 366day Adult Influenza Vaccine not due until02/18/24and every 1year Satisfied(in the past 1 year) Satisfied Adult Influenza Vaccine on04/30/23.Satisfied by MARCIANO Campuzano Heather Body Mass Index on07/25/23.Satisfied by MARCIANO Low Bobbi Diabetes Management A1c on02/14/23.Satisfied by Contributor_system, [email or web address] Lipid Screening on09/29/22.Satisfied by Contributor_system, [email or web address] Electronic Signature on File CC: Ryan Washington MD [address] [address] CC: Juan Otrega PA-C [address] [address] Electronically Reviewed/Signed by: PAM Booth Author Signature Dt/Tm:07/25/2023 02:20 PM Department of Family Medicine TB Patient Care team information Care Team Personnel Name: PAM Church Tara Position: Nurse Pract - Family Med Member Role: Primary Care Provider Address: Address: [address] [place] [address] [place] Care Team Related Persons Name: SREE RILEY Address: home No Address Provided Name: JUAN BARRETO Address: home [address] [facility], [id number]"
--- OUTSIDE RECORDS SUMMARY | 2023-08-08 07:46 | External Medical Summary | Continuity of Care Document ---
Author Name Unknown Organization [place] [id number] Address [address] [place] [id number] Care Team Providers Care Marketing Specialist Name Role Phone Marlin Church Primary Care Physician [id number]23 [facility] [address] [facility] [address] [facility] [address] [place] [address] Encounter Diagnosis Bilateral primary osteoarthritis of knee(Discharge Diagnosis) - 07/23/23 Discharge Disposition: Home or Self Care Attending Physician: MD Padmini, Ryan Bustos Allergies, Adverse Reactions, Alerts Substance Reaction Severity Status Allergy Not found in Search 1, 2 Seasonal allergies Active 1SENSITIVE TO TEMPERATURE CHANGES 2Seasonal allergies Immunizations Given and Recorded Vaccine Date Status [...] 1 TABLET BY MOUTH EVERY DAY, Pharmacy: [id number] Start Date: 05/30/22 Status: [...] MOUTH TWO TIMES DAILY WITH MEALS, Pharmacy: [id number] Start Date: 03/06/23 Status: Ordered multivitamin Start: 10/07/14 13:17:00, 1 tab, PO, Daily Start Date: 10/07/14 Status: Ordered nystatin 100,000 units/g topical cream Start: 06/05/22 16:52:00 EDT, See Instructions, Disp# 30 g, Refills: 4, apply topical bid to effected area, Pharmacy: [id number] Start Date: 06/05/22 Status: [...] Start Date: 10/28/14 Status: Ordered Mental Status 07/23/23 Barriers to Learning one year None evide nt Mandatory Health Literacy Documentation Yes Health Literacy Communication Barriers N ever Primary Language Greek Problem List Condition Confirmation Course Effective Dates [...] Effective Dates Health Status Clinical Service Informant Bilateral primary osteoarthritis of knee Discharge Diagnosis 07/23/23 Procedures Procedure Date Related Diagnosis Body Site [...] discuss this with her surgeon. [facility] Impression: 1. 20/30 [...] 1Quit in November 1999. Smoked 1 ppd. Ortho Outpt Note * Yoly Gomez: PERFORM Event Display: Ortho Outpt Note Authored Date: [id number] Name:JAN BARRETO Patient Number:[id number] :1940 Date of Service:07/23/2023 CHIEF COMPLAINT: Bilateral knee arthritis, discuss TKA HPI: [id number] yearisaíasFefidel presents today to discuss left TKA. She complainsof bilateral knee pain but left worse than right. She states her left knee gives out on her and causes difficulty with walking. She is currently scheduled for left TKA on 08/08 and right TKA on 10/17/2023. PHYSICAL EXAM: Focus on the left lower extremity: Femoral and sciatic nerve function intact. Left knee ROM: -5 to 110 IMPRESSION: Bilateral knee OA PLAN: Reviewed risks, benefits, procedure, and rehabilitation for left TKA. [place] permission for surgical consent signed. Follow-up as scheduled for H&P and surgery ATTESTATION: Yoly Tejeda, scribing for and in the presence of, Ryan Washington, on this date,07/23/2023 10:58:00. Electronic Signature on File Electronically Reviewed/Signed by: Yoly Gomez Author Signature Dt/Tm:07/23/2023 11:14 AM Electronically Reviewed/Signed by: Ryan Washington MD Cosigner Signature Dt/Tm: 07/23/2023 11:46 AM Business Operations Director for Clinical Affairs, [facility] Professor in Orthopaedics Director Payer, [facility] Patient Care team information Care Team Personnel Name: PAM Church Tara Position: Nurse Pract - Family Med Member Role: Primary Care Provider Address: Address: [address] [place] [address], [place] [address] [place] Care Team Related Persons Name: SREE RILEY Address: home No Address Provided Name: JUAN BARRETO Address: home [address], [id number]
[2023-08-08] MEDS ORDERED: PROPOFOL IV EMULSION 10 MG/ML 20 ML VIAL IV ONE (07:47)
[2023-08-08] MEDS ORDERED: PROMETHAZINE HCL 12.5 MG in SODIUM CHLORIDE 0.9% 50 ML IV PRN (08:30)
[2023-08-08] MEDS ORDERED: ONDANSETRON INJ 2 MG/ML 2 ML VIAL IV PRN ×2 (08:30→13:21)
[2023-08-08] MEDS ORDERED: ATROPINE SULFATE 0.1 MG/ML 10ML SYR IV PRN (08:30)
[2023-08-08] MEDS ORDERED: fentaNYL citrate PF 100 MCG/2 ML VIAL IV PRN (08:30)
[2023-08-08] MEDS ORDERED: HYDROmorphone INJ 2 MG/ML SYR/VIAL IV PRN (08:30)
[2023-08-08] MEDS ORDERED: ePHEDrine sulfate 50 MG/ML AMP IV PRN (08:30)
--- NOTE | 2023-08-08 10:55 | Post Operative Brief Note ---
Immediate Post Op Note v1 Date of Surgery August 08, 2023 Pre & Post Diagnosis Operation Date: 08/08/23 08:50 <No data on this case meets the specified criteria> Left knee osteoarthritis with flexion varus deformity. Postop diagnosis same I identified the patient and participated in the time-out.: Yes Procedure Operation Date: 08/08/23 08:50 <No data on this case meets the specified criteria> Cemented left total knee replacement Surgeon Ryan Washington MD Planner [facility] Estimated Blood Loss 25 Findings Consistent with Post-Op Diagnosis Severe tricompartmental disease medial and patellofemoral joint most severe varus alignment flexion deformity Fluids See anesthesia report Complications None
--- NOTE | 2023-08-08 11:00 | Orthopedic Progress Note ---
Date of Service August 08, 2023 Orthopedic Progress Note Tolerated left total knee replacement. Denies chest pain shortness of breath fever chills nausea vomiting headache. Vital signs are stable. Wound dressing clean dry intact neurovascular tact limited by spinal. X-rays pending. Overall doing well continue care pathway. Family contact identified and called.
--- NOTE | 2023-08-08 11:00 | Operative Report ---
Post Operative Report Pre & Post Diagnosis Osteoarthritis left knee with varus flexion deformity pre and postop diagnosis the same Operation Date: 08/08/23 08:50 <No data on this case meets the specified criteria> I identified the patient and participated in the time-out.: Yes Procedure Operation Date: 08/08/23 08:50 <No data on this case meets the specified criteria> Cemented left total knee replacement Surgeon Ryan Washington MD Forensic Social Worker Shannon no resident or fellow available Estimated Blood Loss 25 Findings Consistent with Post-Op Diagnosis Severe osteoarthritis medial patellofemoral joint with flexion varus deformity tricompartmental disease noted Fluids See anesthesia report Specimens Bone pathology Drains None Complications None Indications Severe pain failed conservative management including injections Description of Procedure After the patient was appropriate on flight site verify consent provide antibiotics confirmed to be given the right left lower extremities were examined there was significant flexion deformity on the left. She was then prepped and draped use routine fashion on the left. Tourniquet plated to 275 3 mmHg for total of roughly 50 minutes. Midline exposure utilized. Parapatellar throbbing performed. Synovectomy completed. Osteophytes resected. Distal femur entered. Cruciates resected. Tibia subluxated. Menisci resected. Distal femoral drill bit then placed. Distal femur resected 14 mm proximal tibia 4 mm. Extension gap was excellent. The femur was sized with 3 appropriate cutting block applied and the anterior posterior, chamfer cuts made the flexion gap checked and was excellent. The box cut was then made to size 3 fit well. Tibia was then subluxated and size 3 instruments were then used to appropriately drill and reamer and once the size 3 was then placed trial reduction was carried out. The size 3 fit well with 10 spacer. It tracked well. There was no midrange instability was full extension the patella tracked well. She mentioned that the flexion gap was checked after the distal femur was resected appropriately. This was prior to putting on the implants prior to cutting the the box. Flexion gap was excellent. Posterior capsule was injected at that time as well. Once this was all done again the tibia was then prepared as noted above. The patella was then everted. It was resected leaving about 14 mm in the 48 button was applied. The tracked well. Ortho mix was injected all about the knee. All trial implants were removed. The TXA was soaked for 2-1/2 minutes. He was instructed Betadine for 2 minutes. The implants were then impacted into position after cemented appropriately tibia femur patella in that order a 12 minutes the tourniquet deflated minor bleeding points controlled lecture cautery at 14 minutes knee was inspected no cement was required wound was irrigated with Betadine and then later seated the knee was then reduced and closed at the 40 degrees of flexion with #2 Vicryl for the capsule 2-0 Vicryl subcutaneously and standstill clips for skin appropriate Patient transferred recovery in satisfactory condition having tolerated the pr ocedure well. EBL was roughly 25 cc crystalloid per anesthesia bone pathology pending DVT prophylaxis tomorrow. Summary of implants the J&J rotating platform size 3 femur posterior. Starting size 3 tibia size 3 spacer posterior cruciate substituting over the 3 peg patella size 48 2 bags of Palacos G cement. I attest to the content of the Intraoperative Record and any orders documented therein. Any exceptions are noted below.
--- NOTE | 2023-08-08 11:03 | Discharge Summary ---
Date of Service August 09, 2023 Admission HPI Per Admitting Provider Significant left knee pain flexion and varus deformity. Principal Diagnosis Severe osteoarthritis left knee left greater than right Discharge Data Allergies Allergy/AdvReac Type Severity Reaction Status Date / Time silicone Allergy Unknown contact Verified 08/08/23 07:35 dermatitis Consultations None Procedures Performed Operation Date: 08/08/23 08:50 <No data on this case meets the specified criteria> Cemented left total knee replacement Ordered Studies 08/08/23 05:00 US - OR guided needle placemen Routine Hospital Course (1) Status post left knee replacement: Total Time Total Time Spent Total Time Spent (In Minutes): 10 minutes. Discharge Plan Discharge Items Patient Disposition: Transfer Inpatient Rehab Fac Reason For Visit: Left Knee Degenerative Joint Disease Discharge Diagnosis: Left knee s/p total knee replacement Condition on Discharge: Good Activity: Resume your previous activity Lifting: Wait until after follow-up appointment Bathing: Keep incision dry Exercise/Sports: Wait until after follow-up appointment Weightbearing: Full weightbearing Non-emergency contact: Surgeon Call non-emergency contact if: you have any medication questions, your pain is not controlled, your temperature is above 101.5, your wound has increased redness, your wound has increased drainage and your wound pain has increased Follow-up/Referrals: Marlin Church [Primary Care Provider] - Diet: Carb Consistent or DM2 Addtl Attending Provider Instructions: New Medicine: * You will likely be taking one or more of these medications: 1. Percocet - Take, as directed, when you need it, every four to six hours to control your pain. 2. Iron Sulfate - Take three times each day for the month after surgery to help you replace the blood lost during surgery. 3. Eliquis- Thins your blood to lessen the chance of forming a blood clot. The dose of this is different for each person and is based on your blood tests that are done twice a week. * The most common side effects of pain medicine and iron are nausea and constipation. If nausea or constipation is too much of a problem or if you have any questions about your new medicines or doses, call [facility] at . We will try to help you manage these issues. "VERY IMPORTANT TO READ AND REVIEW" Blood Clots and Blood Thinning Medicine: * You are given Eliquis during the immediate post-operative period to lessen the risk of blood clots forming in your legs and/or lungs. It is usually given for six weeks after surgery. Pain: * The immediate post-operative period after knee replacement surgery is often quite painful. * You are given a prescription for pain medicine. You should take it, as directed, when you need it, especially before physical therapy and before going to bed. Pain that interferes with sleep is very common and can last several months. * You will likely need pain medicine for the first four to six weeks. It will not stop all of the pain. The pain will lessen and as you feel better, you may change to milder pain medicine such as Tylenol. * The most common side effects of pain medicine are nausea and constipation, so don't take more than you need. Physical Therapy: * You will have physical therapy two or three times each week for four to six weeks after your surgery in order to regain your knee range of motion and to retrain your knee to work properly. * It is just as important to make sure you are getting your knee perfectly straight as it is to regain your knee bend. * Taking a pain pill an hour before therapy can help you have a more productive and comfortable therapy session if needed. Home Exercise: * You were shown a series of exercises (heel props, heel slides, etc.) in the hospital. Do these exercises three to four times each day including the exercises you were shown in physical therapy. Walking: * Get up and walk several times each day. For the first four weeks, try not to stand or walk for more than one hour at a time. If you do stand or walk for more than one hour, you will not hurt anything, but your knee and leg will likely swell. * As you feel comfortable, you may change from the walker or crutches to a cane and then to independent walking. SELF CARE INSTRUCTIONS AFTER TOTAL KNEE REPLACEMENT A. You may need to continue a physical therapy program after discharge from the hospital. There are several options available to you. Your doctor will assist you in selecting the best one for you. 1. An out-patient facility 2 to 3 times a week for therapy or home therapy. 2. Continue working on all exercises taught to you in the hospital. Your goals should be to increase bending of your knee to 90 degrees and beyond and to fully straighten your knee. B. You may progress at your own pace from walking with a walker or crutches to a cane; then to no assistive devices. C. Make walking a part of your daily routine. Be up as much as comfortable with rest periods throughout the day. Rest with leg elevation is very important. Use the ice wrap frequently for the first 3-4 weeks. D. There are no restrictions on activities. You may ride in a car, shop, participate in husbandry technician and all social activities. E. Wear the long elastic stockings (LETICIA hose) 20 hours a day for six weeks after surgery. They can be removed several times a day for laundering and for a shower. F. Do not place a pillow behind your knee when resting. A pillow at your ankle is okay. VERY IMPORTANT TO READ AND REVIEW A. Take Eliquis (blood thinning medication) as directed by your doctor. B. There are a few signs you need to watch for after you are home. Call [facility] if you notice any of the followin. Increased severe knee pain. Some pain is expected especially when you exercise. 2. Increased swelling in your leg or knee; pain or swelling of the calf muscle in either lower leg. 3. Any fluid drainage from the incision. 4. Shortness of breath or chest pain. C. Please call [facility] at if you have any concerns or questions about your operation or recovery. The doctor or his nurse will return your call promptly. D. You must take antibiotics before dental work, bladder, bowel or other surgery. Call the office to obtain a prescription at least 2 days prior to your appointment. * CALL IF INCREASED PAIN, REDNESS, DRAINAGE OR FEVER GREATER THAT 101. * Sutures should be removed 12-14 days after surgery unless you are on chronic steroids, then it will be 14-18 days after surgery. Call your doctor if: * Temperature above 101 degrees F. * Pain not relieved by pain medicine ordered. * Increased drainage or redness from incision. * Notify your doctor with any questions or concerns. Start your Eliquis tonight. Take it 2 x day x 6 weeks Keep your knee immobilizer on when out of bed on and Sunday. It can be discontinued entirely on Sunday morning. Do not sleep in it. Use your walker when standing/ambulating Pending Studies at Discharge: Yes Studies:: Bone pathology Skilled Items Patient informed of condition?: Yes DNR: No Discharge Level of Care: Acute rehab Communicable Disease: No Discharge Prognosis: Stable Lines: None Urinary Catheter: No Medications and DC Order Prescriptions: No Action citalopram 40 mg tablet 40 mg PO HS Qty: 30 11RF memantine [Namenda] 10 mg tablet 10 mg PO BID Qty: 180 3RF galantamine 16 mg capsule,ext rel. pellets 24 hr 16 mg PO QAM Qty: 90 3RF Rx Instructions: administer with breakfast exemestane 25 mg tablet 25 mg PO QPM One-A-Day Proactive 65 Plus 200 mcg tablet 1 tab PO BID diphenoxylate-atropine [Lomotil] 2.5-0.025 mg tablet 1 tab PO UD PRN (Reason: Diarrhea) Patient Comments: VERY SELDOM fexofenadine [Allergy Relief (fexofenadine)] 180 mg tablet 180 mg PO HS cholecalciferol (vitamin D3) 25 mcg (1,000 unit) capsule 2,000 unit PO QPM Patient Comments: MOST OF THE TIME ascorbic acid (vitamin C) 500 mg capsule 1,000 mg PO BID metformin 500 mg tablet 500 mg PO BID magnesium oxide 250 mg magnesium Tablet 250 mg PO HS omeprazole 20 mg capsule,delayed release(DR/EC) 40 mg PO UD PRN (Reason: Acid Reflux) Patient Comments: NOT TAKING FOR THE MOST PART aspirin 81 mg Tablet,Delayed Release (Dr/Ec) 81 mg PO QPM Slow Release Iron 140 mg (45 mg iron) Tablet Extended Release 140 mg PO HS Patient Comments: 45 MG diphenhydramine HCl [Benadryl] 25 mg Capsule 25 mg PO UD PRN (Reason: ITCHINESS) Patient Comments: NOT TAKING RIGHT NOW cranberry 400 mg Capsule 400 mg PO UD PRN (Reason: UTI) calcium 500 mg tablet 500 mg PO QAM Patient Comments: Takes the [facility] Discharge Orders: Discharge Order (Routine); Ordered 08/09/23 Ordered By: Ryan Washington Admission Data Admit Date/Time: 08/08/23 11:18 Attending Provider: Ryan Washington Admit Provider: Ryan Washington Primary Care Provider: Marlin Church Other Providers: [facility]
--- NOTE | 2023-08-08 11:10 | Operative Report ---
Post Operative Report Pre & Post Diagnosis Operation Date: 08/08/23 08:50 Pre-Op Diagnosis: Left Knee Degenerative Joint Disease Post-Op Diagnosis: Left Knee Degenerative Joint Disease I identified the patient and participated in the time-out.: Yes Procedure Operation Date: 08/08/23 08:50 Actual Procedures p Left Total Knee Arthroplasty(Left) - Ryan Washington MD Surgeon CRUZ Washington MD Top Lift Cutter Shannon SINGH no resident or fellow available Estimated Blood Loss 25 Findings Consistent with Post-Op Diagnosis see operative report Specimens see operative report Drains none Complications none Disposition Accompanied Patient To Recovery: Yes Indications This 82 year old female presented to the office with complaints of persisting bilateral knee pain, left greater than right. She had tried conservative care measures without improvement. She elected to proceed with surgical intervention after being educated about potential risks and outcomes. Preoperative imaging was obtained. Description of Procedure The patient was administered a spinal anesthetic and then taken to the operating room where she was given sedation. She was prepped and draped in the usual sterile fashion. Please see Dr. Washington's operative report for specifics of the procedure. I was present for the entire case from initial patient pos itioning through final wound closure. Assistance was provided in tissue retraction, hemostasis, trial implant placement, final implant placement, and final wound closure. The patient was taken to the recovery room in satisfactory condition. I attest to the content of the Intraoperative Record and any orders documented therein. Any exceptions are noted below.
--- NOTE | 2023-08-08 11:35 | XRay Report ---
XR knee LT 1 or 2V routine CLINICAL HISTORY: S/P L TKA TECHNIQUE: 2 views of the left knee were obtained. Comparison: Comparison is made to knee radiographs 02/04/2018 FINDINGS: Patient is status post total knee arthroplasty with expected postsurgical changes including soft tiss ue swelling and subcutaneous emphysema. No periarticular lucency or hardware fracture is seen. IMPRESSION: Expected postoperative appearance status post placement of total knee arthroplasty. ACT 112: Negative or not required by law. Electronically signed by: Kelvin Frank M.D. 08/08/2023 11:33 AM
--- NOTE | 2023-08-08 12:38 | Anesthesiology Progress Note ---
Date of Service August 08, 2023 Anesthesia Post Procedure Vital Signs Vital Signs: Temp Pulse Pulse Resp BP Pulse Ox O2 Del Method 08/08/23 12:30 97 H 16 119/59 L 96 Nasal Cannula 08/08/23 12:15 92 H 16 110/61 95 Nasal Cannula 08/08/23 12:05 36.6 C 89 15 112/62 96 Nasal Cannula 08/08/23 11:55 87 14 112/62 97 Nasal Cannula 08/08/23 11:45 87 16 130/70 96 Nasal Cannula 08/08/23 11:35 88 16 131/65 95 Nasal Cannula 08/08/23 11:25 90 18 131/73 95 Oxymask 08/08/23 11:15 93 H 17 118/76 100 Oxymask 08/08/23 11:07 36.9 C 98 H 19 142/78 H 99 Oxymask 08/08/23 07:44 Room Air 08/08/23 07:44 36.5 C 111 H 21 157/93 H 93 Room Air O2 Flow Rate 08/08/23 12:30 2 08/08/23 12:15 2 08/08/23 12:05 2 08/08/23 11:55 2 08/08/23 11:45 2 08/08/23 11:35 2 08/08/23 11:25 5 08/08/23 11:15 5 08/08/23 11:07 5 08/08/23 07:44 08/08/23 07:44 Pain Intensity Left Knee: Pain Intensity: 7 Transfer of Care Handoff Completed per policy Notes Mental Status: alert / awake / arousable and participated in evaluation Nausea / Vomiting: adequately controlled Pain: adequately controlled Airway Patency, RR, SpO2: stable & adequate BP & HR: stable & adequate Hydration State: stable & adequate Neuraxial Anesthesia: was administered and sensory block is resolving Anesthetic Complications: no major complications apparent and Pt Satisfied with anesthetic care
[2023-08-08] MEDS ORDERED: NALOXONE HCL 0.4 MG/1 ML VIAL/CARP IV PRN (13:21)
[2023-08-08] MEDS ORDERED: SODIUM CHLORIDE 0.9% 1,000 ML IV SCH (13:21)
[2023-08-08] MEDS ORDERED: ALUMINUM/MAGNESIUM SUSP 30 ML UDC PO PRN (13:21)
[2023-08-08] MEDS ORDERED: bisacodyL 10 MG SUPP PR PRN (13:21)
[2023-08-08] MEDS ORDERED: diphenhydrAMINE 50 MG/ML VIAL IV PRN (13:21)
[2023-08-08] MEDS ORDERED: HYDROmorphone INJ 0.5 MG/0.5 ML SYR IV PRN (13:21)
[2023-08-08] MEDS ORDERED: oxyCODONE HCL IR 5 MG TAB (IMMEDIATE RELEASE) PO PRN (13:21)
[2023-08-08] MEDS ORDERED: MAGNESIUM HYDROXIDE SUSP 30 ML UDC PO PRN (13:21)
[2023-08-08] MEDS ORDERED: METOCLOPRAMIDE HCL INJ 5 MG/ML 2 ML VIAL IV PRN (13:21)
[2023-08-08] MEDS ORDERED: PHARMACY GLYCEMIC MGMT CONSULT PRN (13:21)
[2023-08-08] MEDS ORDERED: DIPHENOXYLATE/ATROPINE 2.5/0.025MG TAB PO PRN (13:21)
[2023-08-08] MEDS ORDERED: PANTOprazole 40 MG TAB PO PRN (13:39)
--- NOTE | 2023-08-08 13:54 | Pharmacy Report ---
Pharmacy Glycemic Short Note 2 - Date of Service August 08, 2023 - Glycemic Short BSG Results (Last 24 hours): 08/08/23 08/08/23 07:41 11:10 POC Glucose 221 H 160 H OUTPATIENT ANTIDIABETIC REGIMEN: * metformin 500 mg bid ASSESSMENT: * 82 year old now s/p POD 0 left TKA. Pharmacy consulted for glycemic management. Patient managed only on metformin at home. BSGs slightly elevated today, unclear if related to stress from surgery. No steroids given intraoperatively - plan to start novolog weight based stress of 2 dosing for now. PLAN FOR INPATIENT GLYCEMIC CONTROL: * Hold outpatient oral diabetes medications * Basal insulin * Lantus - hold * Bolus insulin * NovoLog per scale ACHS or Q6hrs while NPO * Goal Range: Low 110 mg/dL - High 140 mg/dL * Correction Factor: 25 mg/dL/unit * Nutritional / Prandial insulin per carb ratio of 1 unit per 9 grams CHO consumed
[2023-08-08] MEDS ORDERED: GLUCOSE 10 TAB/TUBE PO PRN (14:00)
[2023-08-08] MEDS ORDERED: GLUCOSE 40% GEL 15 GM TUBE PO PRN (14:00)
[2023-08-08] MEDS ORDERED: DEXTROSE 50% 50 ML SYRINGE IV PRN (14:00)
[2023-08-08] MEDS ORDERED: GLUCAGON FOR INJ 1 MG VIAL IM PRN (14:00)
[2023-08-08] MEDS ORDERED: CARBOHYDRATES FOR HYPOGLYCEMIA PO PRN (14:00)
[2023-08-08] MEDS: KETOROLAC TROMETHAMINE 15 MG/ML VIAL IV SCH ×2 (14:12→19:43)
[2023-08-08] MEDS: ACETAMINOPHEN 500 MG TAB PO SCH ×2 (14:12→20:57)
[2023-08-08] MEDS: INSULIN ASPART PER UNIT CHARGE SC SCH ×3 (14:34→20:53)
[2023-08-08] MEDS: ASCORBIC ACID 500 MG TAB PO SCH (17:11)
[2023-08-08] MEDS: FERROUS GLUCONATE 324 MG TAB PO SCH ×2 (17:12→17:25)
[2023-08-08] MEDS: ceFAZolin 2000MG 2,000 MG/15 ML SYR IV SCH (17:23)
[2023-08-08] MEDS: MEMANTINE HCL 10 MG TAB PO SCH (20:57)
[2023-08-08] MEDS: DOCUSATE SODIUM 100 MG CAP PO SCH (20:57)
[2023-08-08] MEDS ORDERED: SENNA 8.6 MG TAB PO SCH (21:00)
[2023-08-08] MEDS ORDERED: FEXOFENADINE HCL 180 MG TAB PO SCH (21:00)
[2023-08-08] MEDS ORDERED: CITALOPRAM 40 MG TAB PO SCH (21:00)
[2023-08-08] MEDS ORDERED: ASPIRIN 81 MG ECTAB PO SCH (21:00)
[2023-08-08] MEDS ORDERED: MAGNESIUM OXIDE 400 MG TAB PO SCH (21:00)
[2023-08-09] MEDS: KETOROLAC TROMETHAMINE 15 MG/ML VIAL IV SCH ×2 (00:58→07:23)
[2023-08-09] MEDS: ceFAZolin 2000MG 2,000 MG/15 ML SYR IV SCH (00:59)
[2023-08-09] MEDS: ACETAMINOPHEN 500 MG TAB PO SCH ×2 (06:04→13:04)
--- NOTE | 2023-08-09 06:27 | Orthopedic Progress Note ---
Date of Service August 09, 2023 Assessment & Plan Admission and Anticipated Discharge Date Admission Date: August 08, 2023 Orthopedic Progress Note Postop day 1 status post left total knee replacement. Patient is in pleasant spirits. She denies chest pain shortness of breath fever chills nausea vomiting or headache. Vital signs are stable she is afebrile. Neurovascular check femoral sciatic nerve is normal. Can do a straight leg raise. Neurovascular calves are nontender. Wound dressing clean dry and intact. A.m. labs are pending. Assessment doing well status post left total knee replacement. Begin anticoagulation today. [facility] today.
[2023-08-09 06:53] LABS: Hematocrit (blood only) 35.5 % (37.0-47.0); Hemoglobin 11.9 g/dl (12.0-16.0); Mean Corpuscular Hemoglobin 30.4 pg (25.0-34.0); Mean Corpuscular Hgb Conc 33.5 g/dL (32.0-36.0); Mean Corpuscular Volume 90.8 fL (80.0-100.0); Mean Platelet Volume 9.2 fL (9.4-12.4); Platelet Count 201 K/uL (130-400); RDW Coefficient of Variation 12.9 % (11.5-14.5); RDW Standard Deviation 42.3 fL (36.4-46.3); Red Blood Count 3.91 M/uL (4.20-5.40); White Blood Count 12.17 K/ul (4.8-10.8)
[2023-08-09 07:22] LABS: BUN Creatinine Ratio 24.6 (10-20); Calcium 8.5 mg/dl (8.6-10.3); Creatinine Clr Calc Pharmacy 78.4 ml/min; Est GFR (African American) 97.2 ml/min; Est GFR (Non-African American) 83.9 ml/min; Potassium 4.1 mmol/L (3.5-5.1)
[2023-08-09] MEDS: ASCORBIC ACID 500 MG TAB PO SCH (07:23)
[2023-08-09] MEDS: FERROUS GLUCONATE 324 MG TAB PO SCH (07:23)
[2023-08-09] MEDS ORDERED: metFORMIN HCL ER 500 MG TABCR PO SCH (08:00)
[2023-08-09] MEDS: MEMANTINE HCL 10 MG TAB PO SCH (08:37)
[2023-08-09] MEDS: INSULIN ASPART PER UNIT CHARGE SC SCH ×2 (08:37→12:07)
[2023-08-09] MEDS: DOCUSATE SODIUM 100 MG CAP PO SCH (08:37)
[2023-08-09] MEDS ORDERED: APIXABAN 2.5 MG TAB PO SCH (09:00)
[2023-08-09] MEDS ORDERED: GALANTAMINE HYDROBROMIDE 8 MG CAPER PO SCH (09:00)
[2023-08-09] MEDS ORDERED: MULTIVITAMIN TAB PO SCH (09:00)
--- NOTE | 2023-08-09 09:49 | Orthopedic Progress Note ---
Date of Service August 09, 2023 Assessment & Plan (1) Status post left knee replacement: Plan: The patient was educated regarding today's findings. Conservative care measures were discussed. Her dressings were changed by me. Alex stocking was applied. She will leave this in place over the weekend. It can be changed at [facility] on Sunday if needed for soiling. Continue with ice and elevation. Importance of using her walker when standing and ambulating was discussed. Her instructions were provided. Follow-up with me in the office on August 23 for staple removal. This was started this morning. Continue twice daily for 1 month. Admission and Anticipated Discharge Date Admission Date: August 08, 2023 Subjective This 82-year-old female seen today in her room. She is 1 day status post left total knee arthroplasty. She states she is doing very well. She slept well overnight. She has enjoyed the food. She has already finished her breakfast. She is looking forward to going to [facility] today for rehab. She has been out of bed already. She denies any chest pain, shortness of breath, nausea, vomiting, or abdominal pain. No other complaints. Review of Systems Review of Systems: Unchanged from yesterday. Physical Exam Physical Exam: General: Well-developed, well-nourished, elderly female, in no acute distress. Laying in bed. Alert and oriented. Conversive. Skin: Warm and dry with good turgor. No rashes. Postsurgical dressing is in place on the left knee. Upon removal, she has scant dried blood on her inner dressings. Expected postoperative edema at the knee. No ecchymosis. She has no active bleeding. Surgical bianca are in place. Musculoskeletal: The patient has intact motor function of her hip, knee, and ankle of the left leg. She is able to set her quad and perform a straight leg raise. She has full terminal extension. Flexion to around 45 to 50 degrees. Neurologic: Gross sensation is intact across the left leg by soft touch. Peripheral pulses are 2+. Results & Data Vital Signs (Past 12 Hours) Vital Signs Temp Pulse Resp BP Pulse Ox O2 Del Method 08/09/23 07:30 Room Air 08/09/23 07:12 36.6 C 76 16 105/60 91 Room Air 08/09/23 04:00 36.5 C 78 16 127/78 93 Room Air 08/08/23 23:31 36.4 C L 87 16 125/77 94 Room Air Laboratory Results CBC obtained this morning shows a white count of 12.17. H&H of 11.9 and 35.5. Platelets are 201,000. PRP is relatively unremarkable. Sodium 135, potassium 4.1, chloride 105, carbon dioxide 24, anion gap of 6. BUN of 16 with creatinine 0.65. Glucose this morning was 190.
== END 2023-08-09 13:30 ==
LOC: ASU 07:12 → PACUINP 07:12 → 3E 13:26